=== PATIENT | female | born 1960 | race Hispanic/Latino ===

== ENCOUNTER 2016-09-12 16:43 | Emergency (ER) | payer OTHER ==
[2016-09-12 16:48] VITALS: BMI 19.5
[2016-09-12 17:03] VITALS: TEMP 97.6; O2SAT 100
[2016-09-12] MEDS ORDERED: Iohexol 240 (50 ml) ONE ×2 (17:26→18:40)
--- NOTE | 2016-09-12 17:27 | C.PDOC ---
History Of Present Illness 56 y/o female presents to ED with complaint of diffuse lower abdominal pain onset 2 hours prior to arrival. She reports that pain worsens when she takes a deep breath or lays down. Also notes worsening of pain on movement or walking, Patient describes pain as constant and cramping. She had an episode of vomiting this morning but denies changes in bowel habits or urination, fever, chills, or back pain. Patient states it feels like pain is in her ovaries - notes history of left oophorectomy 2 years ago. Notes she has not had menstrual period in several years. Time Seen by Provider: 09/12/16 17:00 Chief Complaint (Nursing): Abdominal Pain History Per: Patient History/Exam Limitations: no limitations Onset/Duration Of Symptoms: Hrs Current Symptoms Are (Timing): Still Present Location Of Pain/Discomfort: RLQ, LLQ, Suprapubic Radiation Of Pain To:: None Quality Of Discomfort: Cramping, "Pain" Associated Symptoms: denies: Fever, Vomiting, Diarrhea, Loss Of Appetite, Back Pain, Urinary Symptoms Exacerbating Factors: Movement, Walking, Deep Breaths Recent travel outside of the [place]: No Past Medical History Reviewed: Historical Data, Nursing Documentation, Vital Signs Vital Signs: Last Vital Signs Temp 97.6 F 09/12/16 17:02 Pulse 62 09/12/16 18:18 Resp 16 09/12/16 18:18 BP 157/83 H 09/12/16 18:18 Pulse Ox 100 09/12/16 20:05 - [facility] Procedures INJECT/INFUSE NEC (06/27/14) Family History: States: Unknown Family Hx - Social History Hx Alcohol Use: Yes Hx Substance Use: No - Immunization History Hx Tetanus Toxoid Vaccination: No Hx Influenza Vaccination: No Hx Pneumococcal Vaccination: No Review Of Systems Except As Marked, All Systems Reviewed And Found Negative. Constitutional: Negative for: Fever, Chills Respiratory: Negative for: Cough Gastrointestinal: Positive for: Abdominal Pain. Negative for: Vomiting, Diarrhea Genitourinary: Negative for: Dysuria, Hematuria Skin: Negative for: Rash Neurological: Negative for: Headache, Dizziness Physical Exam - Physical Exam Appears: Non-toxic, Other (uncomfortable in pain) Skin: Normal Color, Warm, Dry Head: Atraumatic, Normacephalic Oral Mucosa: Moist Chest: Symmetrical Cardiovascular: Rhythm Regular Respiratory: Normal Breath Sounds, No Rales, No Rhonchi, No Wheezing Gastrointestinal/Abdominal: Soft, Tenderness (suprapubic and lower abdomen), No Distention, Guarding (voluntary guarding), No Rebound Back: No CVA Tenderness Extremity: Normal ROM, Capillary Refill (< 2 sec.) Neurological/Psych: Oriented x3, Normal Speech, Normal Cognition ED Course And Treatment - Laboratory Results Result Diagrams: 09/12/16 17:50 09/12/16 17:50 Lab Interpretation: No Acute Changes O2 Sat by Pulse Oximetry: 100 (RA) Pulse Ox Interpretation: Normal - CT Scan/US Abdomen/Pelvis CT Other Rad Studies (CT/US): Read By Radiologist (Chiquita Monson MD), Radiology Report Reviewed CT/US Interpretation: EXAM: CT Abdomen and Pelvis With Intravenous Contrast. CLINICAL HISTORY: 56 years old, female; Pain; Abdominal pain; Generalized; Additional info: Abd pain. TECHNIQUE: Axial computed tomography images of the abdomen and pelvis with intravenous contrast. This CT. exam was performed using one or more of the following dose reduction techniques: automated. exposure control, adjustment of the mA and/or kV according to patient size, and/ or use of iterative. reconstruction technique. Coronal and sagittal reformatted images were created and reviewed. CONTRAST: 100 mL of omni 300 administered intravenously. EXAM DATE/TIME: Exam ordered 09/12/2016 5:13 PM. COMPARISON: No relevant prior studies available. FINDINGS: Lower thorax: No acute findings. ABDOMEN: Liver: A coarse calcification is noted within the liver parenchyma in the right lobe anteriorly. A. second calcification is noted more inferiorly also in the anterior segment of the right lobe near the. dome. Gallbladder and bile ducts: Unremarkable. No calcified stones. No ductal dilation. Pancreas: Unremarkable. No mass. No ductal dilation. Spleen: Unremarkable. No splenomegaly. Adrenals: Unremarkable. No mass. Kidneys and ureters: Unremarkable. No solid mass. No hydronephrosis. Stomach and bowel: Scattered colonic diverticula are present most severe in the sigmoid colon. The cecum is positioned in the midline. The appendix appears normal. No inflammatory changes are. seen. No obstruction. No mucosal thickening. Appendix: See above. PELVIS: Bladder: Unremarkable. No mass. Reproductive: Unremarkable as visualized. ABDOMEN and PELVIS: Intraperitoneal space: A small free fluid is seen in the posterior cul-de-sac. No free air. Bones/joints : No acute fracture. No dislocation. Soft tissues: Unremarkable. Vasculature: Unremarkable. No abdominal aortic aneurysm. Lymph nodes: Unremarkable. No enlarged lymph nodes. IMPRESSION: 1 Generalize colonic diverticulosis most severe in the sigmoid colon. No findings to suggest. diverticulitis. 2. Hepatic parenchymal calcifications. These could be dystrophic or represent previous. granulomatous disease. Progress Note: CT Abdomen/Pelvis, Labs ordered. Treated with morphine 2mg IVP. She continued to c/o nausea and pain. Treated with Zofran and Dilaudid. Reevaluation Time: 20:49 Reassessment Condition: Improved (but now with epigastric pain. Lower abdominal pain resolved. CT does not show any acute intraabdominal pathology.) Disposition Counseled Patient/Family Regarding: Studies Performed, Diagnosis, Need For Followup, Rx Given - Disposition Disposition: HOME/ ROUTINE Disposition Time: 20:49 Condition: IMPROVED Additional Instructions: Keep your diet bland as tolerated. Prescriptions: Naproxen [Naprosyn] 500 mg PO BID PRN #30 tablet PRN Reason: Pain, Moderate (4-7) Ondansetron ODT [Zofran ODT] 1 odt PO BID PRN #6 odt PRN Reason: Nausea/Vomiting Pantoprazole Sodium [Protonix] 40 mg PO DAILY #30 tablet. Instructions: Acute Abdominal Pain (ED) - Clinical Impression Clinical Impression: Abdominal pain, Nausea - Scribe Statement The provider has reviewed the documentation as recorded by the Traci Lindsey Provider Attestation: All medical record entries made by the Traci were at my direction and personally dictated by me. I have reviewed the chart and agree that the record accurately reflects my personal performance of the history, physical exam, medical decision making, and the department course for this patient. I have also personally directed, reviewed, and agree with the discharge instructions and disposition.
[2016-09-12] MEDS: Iohexol 240 (50 ml) PO ONE (17:29)
[2016-09-12 17:57] LABS: BASO # 0.1 K/uL (0.0-0.2); BASO % 0.5 % (0.0-2.0); EOS % 0.2 % (0.0-4.0); HEMATOCRIT 45.9 % (34.0-47.0); LYMPH # 1.5 K/uL (1.0-4.3); LYMPH % 14.3 % (20.0-40.0); MEAN CELL VOLUME 96.8 fL (81.0-99.0); MEAN CORPUSCULAR HEMOGLOBIN 32.1 pg (27.0-31.0); MEAN CORPUSCULAR HGB CONC 33.2 g/dL (33.0-37.0); MONO # 0.6 K/uL (0.0-0.8); MONO % 5.3 % (0.0-10.0); RED CELL DISTRIBUTION WIDTH 14.7 % (11.5-14.5); WHITE BLOOD COUNT 10.8 K/uL (4.8-10.8)
[2016-09-12 17:59] LABS: URINE BILIRUBIN NEGATIVE (NEGATIVE); URINE BLOOD NEGATIVE (NEGATIVE); URINE COLOR Straw (YELLOW); URINE GLUCOSE (UA) 3+ mg/dL (Normal); URINE KETONE NEGATIVE (NEGATIVE); URINE LEUKOCYTE ESTERASE NEG Leu/uL (Negative); URINE PROTEIN NEGATIVE (NEGATIVE); URINE UROBILINOGEN NORMAL mg/dL (0.2-1.0); WBC URINE < 1 /hpf (0-5)
[2016-09-12 18:04] LABS: CHLORIDE 100 mmol/L (98-107)
[2016-09-12 18:05] LABS: POTASSIUM 4.1 mmol/L (3.6-5.2); SODIUM 140 mmol/L (132-148)
[2016-09-12 18:07] LABS: BILIRUBIN,TOTAL 0.5 mg/dL (0.2-1.3); CARBON DIOXIDE 25 mmol/L (22-30); GFR AFRICAN-AMERICAN > 60
[2016-09-12 18:08] LABS: ALB/GLOB RATIO 1.6 (1.0-2.1); ALKALINE PHOSPHATASE 111 U/L (38-126); ALT/SGPT 25 U/L (9-52); AST/SGOT 21 U/L (14-36); BLOOD UREA NITROGEN 7 mg/dL (7-17); CALCIUM 9.2 mg/dl (8.6-10.4); GLUCOSE,RANDOM 190 mg/dL (65-105)
[2016-09-12 18:19] VITALS: BP 157/83; PULSE 62; RESP 16
[2016-09-12] MEDS ORDERED: HYDROmorphone 1 mg/ml ISec ONE (18:46)
[2016-09-12] MEDS: HYDROmorphone 1 mg/ml ISec IVP STA (18:56)
[2016-09-12] MEDS ORDERED: Iohexol 300 100 ML IJ ONE (19:19)
--- NOTE | 2016-09-13 08:34 | CT ---
PROCEDURE: CT Abdomen and Pelvis with contrast HISTORY: Abdominal pain COMPARISON: None. TECHNIQUE: Multiple contiguous axial images were performed through the abdomen and pelvis with intravenous contrast. Subsequently, sagittal and coronal reformatted images were obtained. Radiation dose: Total exam DLP = 196 mGy-cm. This CT exam was performed using one or more of the following dose reduction techniques: Automated exposure control, adjustment of the mA and/or kV according to patient size, and/or use of iterative reconstruction technique. FINDINGS: LOWER THORAX: Bibasilar atelectasis. LIVER: Fatty infiltration of the liver. Coarse calcification noted within the hepatic parenchyma in the right lobe anteriorly. Additional calcification noted more inferiorly also in the anterior segment of the right lobe near the dome. GALLBLADDER AND BILE DUCTS: Unremarkable. PANCREAS: Unremarkable. No gross lesion or ductal dilatation. SPLEEN: Unremarkable. ADRENALS: Unremarkable. No mass. KIDNEYS AND URETERS: Unremarkable. No hydronephrosis. No solid mass. VASCULATURE: Calcification and plaque within the aorta. BOWEL: Under distended and or mildly thickened distal descending colon and sigmoid colon. Underdistention and or mild thickening of the cecum. In addition, there are a few distended loops of small bowel seen within the distal abdomen measuring up to 2.9 centimeters, nonspecific. Clinical correlation. Scattered colonic diverticuli present most prominent in the sigmoid colon. Cecum is positioned in the midline. APPENDIX: Normal appendix. PERITONEUM: Small amount of free fluid in the posterior pelvic cul-de-sac. LYMPH NODES: Unremarkable. No enlarged lymph nodes. BLADDER: Unremarkable. REPRODUCTIVE: Unremarkable. BONES: Degenerative changes in the spine. OTHER FINDINGS: None. IMPRESSION: Under distended and or mildly thickened distal descending colon and sigmoid colon. Underdistention and or mild thickening of the cecum. In addition, there are a few distended loops of small bowel seen within the distal abdomen measuring up to 2.9 centimeters, nonspecific. Clinical correlation. Scattered colonic diverticuli present most prominent in the sigmoid colon. Small amount of free fluid in the posterior pelvic cul-de-sac. Hepatic parenchymal calcifications. This may be secondary to dystrophic calcifications versus prior granulomatous disease. Clinical correlation. These findings were preliminarily reported at 8:02 p.m. on 09/12/[address] Chiquita Monson.
== END 2016-09-12 21:01 | disposition home or self-care (01) ==
LOC: C.ER 16:43
DX: R10.9 Unspecified abdominal pain (principal)
CPT/HCPCS: 74177; 80053; 81001; 83690; 85025; 96374; 96375; 99285; J1170; J2270; J2405; Q9966; Q9967

== ENCOUNTER 2016-09-13 04:25 | Inpatient (IN) | payer OTHER ==
[2016-09-13 04:25] VITALS: BMI 19.5
[2016-09-13] MEDS ORDERED: Sodium Chloride 0.9% 1,000 ML IV ONE ×3 (04:50→09:01)
--- NOTE | 2016-09-13 04:50 | C.PDOC ---
History Of Present Illness pt was seen here a few hours ago for similar complaints. Ct showed diverticulosis, not diverticulitits. Pt felt better and was discharged., States she had recurrent pain, nausea, not tolerating po. Time Seen by Provider: 09/13/16 04:50 Chief Complaint (Nursing): Abdominal Pain History Per: Patient History/Exam Limitations: no limitations Onset/Duration Of Symptoms: Hrs Current Symptoms Are (Timing): Still Present Context: Other Severity: Moderate Pain Scale Rating Of: 4 Location Of Pain/Discomfort: Diffuse Radiation Of Pain To:: None Quality Of Discomfort: Sharp, Aching, Cramping Associated Symptoms: Nausea, Vomiting. denies: Fever, Chills, Chest Pain Exacerbating Factors: None Alleviating Factors: None Last Bowel Movement: Today Recent travel outside of the [place]: No Additional History Per: Patient, Family Abnormal Vaginal Bleeding: No Past Medical History Reviewed: Historical Data, Nursing Documentation, Vital Signs Vital Signs: Last Vital Signs Temp 97.4 F L 09/13/16 04:35 Pulse 103 H 09/13/16 04:35 Resp 20 09/13/16 04:35 BP 154/121 H 09/13/16 04:35 Pulse Ox 20 L 09/13/16 05:04 - [email or web address] Procedures INJECT/INFUSE NEC (06/27/14) Family History: States: No Known Family Hx - Social History Hx Alcohol Use: Yes Hx Substance Use: No - Immunization History Hx Tetanus Toxoid Vaccination: No Hx Influenza Vaccination: No Hx Pneumococcal Vaccination: No Review Of Systems Constitutional: Negative for: Fever, Chills Eyes: Negative for: Redness ENT: Negative for: Throat Pain Cardiovascular: Negative for: Chest Pain, Palpitations Respiratory: Negative for: Shortness of Breath Gastrointestinal: Positive for: Nausea, Vomiting, Abdominal Pain. Negative for : Constipation Genitourinary: Negative for: Dysuria Musculoskeletal: Negative for: Back Pain Skin: Negative for: Rash, Lesions, Jaundice, Bruising Neurological: Negative for: Weakness Psych: Positive for: Anxiety Physical Exam - Physical Exam Appears: In Acute Distress Skin: Warm, Dry Head: Normacephalic Eye(s): bilateral: Normal Inspection Nose: No Flaring Oral Mucosa: Moist Neck: Supple Chest: Symmetrical Cardiovascular: Rhythm Regular Respiratory: No Rales, No Rhonchi, No Wheezing Gastrointestinal/Abdominal: Bowel Sounds (tympanic to percussion), Soft, Tenderness (diffuse), No Distention, Guarding (voluntary), No Rebound Back: Normal Inspection, No CVA Tenderness Extremity: Normal ROM Extremity: Bilateral: Atraumatic Neurological/Psych: Oriented x3, Normal Speech, Normal Cognition Gait: Steady ED Course And Treatment - Laboratory Results Result Diagrams: 09/13/16 05:06 09/13/16 05:06 ECG: Interpreted By Me, Viewed By Me ECG Rhythm: Sinus Rhythm (86), Nonspecific Changes O2 Sat by Pulse Oximetry: 20 Pulse Ox Interpretation: Normal - Radiology CXR: Interpreted by Me Progress Note: blood work, ivf, zofran, morphine Disposition Discussed With Dr.: Pricila Myers Comment: accepted the pt on his service and took over the care at 544 AM Doctor Will See Patient In The: Hospital Counseled Patient/Family Regarding: Studies Performed, Diagnosis - Disposition Disposition: HOSPITALIZED Disposition Time: 04:50 Condition: GUARDED - POA Present On Arrival: None, Poor Glycemic Control - Clinical Impression Clinical Impression: Vomiting, Abdominal pain, Nausea, Diverticulosis Decision To Admit - Pt Status Changed To: Hospital Disposition Of: Inpatient - Admit Certification Admit to Inpatient:: After my assessment, the patient will require hospitalization for at least two midnights. This is because of the severity of symptoms shown, intensity of services needed, and/or the medical risk in this patient being treated as an outpatient. - InPatient: Physician Admission Certification:: After my assessment, the patient will require hospitalization for at least two midnights. This is because of the severity of symptoms shown, intensity of services needed, and/or the medical risk in this patient being treated as an outpatient. - . Bed Request Type: Regular Admitting Physician: Pricila Myers Patient Diagnosis: Vomiting, Abdominal pain, Nausea, Diverticulosis
[2016-09-13] MEDS ORDERED: Morphine 4 MG/ML VIAL ONE (05:07)
[2016-09-13 05:09] LABS: BASO % 0.3 % (0.0-2.0); EOS % 0.1 % (0.0-4.0); HEMATOCRIT 48.3 % (34.0-47.0); LYMPH # 0.7 K/uL (1.0-4.3); LYMPH % 7.6 % (20.0-40.0); MEAN CELL VOLUME 95.3 fL (81.0-99.0); MEAN CORPUSCULAR HEMOGLOBIN 32.5 pg (27.0-31.0); MEAN CORPUSCULAR HGB CONC 34.1 g/dL (33.0-37.0); MEAN PLATELET VOLUME 7.9 fL (7.2-11.7); MONO # 0.4 K/uL (0.0-0.8); MONO % 4.3 % (0.0-10.0); PLATELET COUNT 278 K/uL (130-400); RED CELL DISTRIBUTION WIDTH 14.4 % (11.5-14.5); WHITE BLOOD COUNT 9.6 K/uL (4.8-10.8)
[2016-09-13 05:19] LABS: CHLORIDE 97 mmol/L (98-107)
[2016-09-13 05:20] LABS: POTASSIUM 3.8 mmol/L (3.6-5.2); SODIUM 137 mmol/L (132-148)
[2016-09-13 05:22] LABS: BILIRUBIN,TOTAL 0.8 mg/dL (0.2-1.3); CARBON DIOXIDE 24 mmol/L (22-30); GFR AFRICAN-AMERICAN > 60
[2016-09-13 05:23] LABS: ALB/GLOB RATIO 1.5 (1.0-2.1); ALKALINE PHOSPHATASE 116 U/L (38-126); ALT/SGPT 19 U/L (9-52); AST/SGOT 18 U/L (14-36); BLOOD UREA NITROGEN 9 mg/dL (7-17); CALCIUM 8.5 mg/dl (8.6-10.4); GLUCOSE,RANDOM 153 mg/dL (65-105); TOTAL PROTEIN 7.9 g/dL (6.3-8.3)
[2016-09-13 05:34] LABS: INR 0.9
[2016-09-13 07:07] LABS: NEUTROPHIL 87 % (50-75); TOTAL CELLS COUNTED 100
--- NOTE | 2016-09-13 09:20 | CP.PCM.CON ---
<Royal Ceballos - Last Filed: 09/13/16 10:01> History of Present Illness - History of Present Illness History of Present Illness: PGY4 GI Fellow Consult Note Patient is a 56yo female with PMHx significant for HTN, diverticulosis who presented to the ED with abdominal pain. Pain began suddenly in the left and right lower quadrants of the abdomen without and precipitating causes. Pain began to radiate to the epigastrium and thus patient took Zantac hoping to relieve her symptoms. As this medication did not improve symptoms, she came to the ED for further evaluation. In the ED, she had routine blood work and a CT A/ P. Work up was only remarkable for sigmoid diverticulosis. As pain had improved , she was discharged home. Less than 10 hours later, pain intensified again, now predominantly in the epigastric region prompting return visit to the ED. Currently, she admits to nausea and vomiting with any PO intake and has persistent epigastric abdominal pain. Denies any change in bowel habits, has not had diarrhea/constipation and denies any fever, chills, weight loss, melena , hematochezia. Of note, patient does admit to similar issues when she was much younger where she would develop severe pain in the epigastric region and have difficulty with PO intake. No formal diagnosis has been made previously. PMHx: HTN, diverticulosis PSHx: Left salpingo-oophorectomy, left breast lumpectomy FHx: Denies any significant family history Social: Daily EtOH use (1-2 beer per day), +tobacco use, denies illicit drug use Endo: EGD many years ago - unremarkable per patient Review of Systems - Constitutional Constitutional: Anorexia. absent: Chills, Fever, Weight Loss - EENT Eyes: absent: Change in Vision Nose/Mouth/Throat: absent: Sore Throat - Cardiovascular Cardiovascular: absent: Chest Pain, Dyspnea, Edema - Respiratory Respiratory: absent: Cough, Dyspnea, Excessive Mucous Production - Gastrointestinal Gastrointestinal: Abdominal Pain, Bloating, Dyspepsia. absent: Constipation, Cramping, Diarrhea, Dysphagia, Hematemesis, Hematochezia, Melena, Nausea, Vomiting - Genitourinary Genitourinary: absent: Dysuria, Urinary Frequency, Urinary Urgency - Musculoskeletal Musculoskeletal: absent: Back Pain, Neck Pain - Integumentary Integumentary: absent: New Lesions, Rash - Neurological Neurological: absent: Dizziness, Numbness, Focal Weakness - Psychiatric Psychiatric: absent: Anxiety, Depression - Endocrine Endocrine: absent: Polydipsia, Polyphagia, Polyuria - Hematologic/Lymphatic Hematologic: absent: Easy Bleeding, Easy Bruising, Lymphadenopathy Past Patient History - Past Medical History & Family History Past Medical History?: Yes - Past Social History Smoking Status: Light Smoker < 10 Cigarettes Daily - CARDIAC Hx Cardiac Disorders: No - PULMONARY Hx Respiratory Disorders: No - NEUROLOGICAL Hx Neurological Disorder: No - HEENT Hx HEENT Problems: No - RENAL Hx Chronic Kidney Disease: No - ENDOCRINE/METABOLIC Hx Endocrine Disorders: No - HEMATOLOGICAL/ONCOLOGICAL Hx Blood Disorders: No - INTEGUMENTARY Hx Dermatological Problems: No - MUSCULOSKELETAL/RHEUMATOLOGICAL Hx Musculoskeletal Disorders: No Hx Falls: No - GASTROINTESTINAL Hx Gastrointestinal Disorders: No - GENITOURINARY/GYNECOLOGICAL Hx Genitourinary Disorders: No - PSYCHIATRIC Hx Psychophysiologic Disorder: No Hx Substance Use: No - SURGICAL HISTORY Other/Comment: L breast cyst- surgery. ovary removed - ANESTHESIA Hx Anesthesia: Yes Hx Anesthesia Reactions: No Meds Allergies/Adverse Reactions: Allergies Allergy/AdvReac Type Severity Reaction Status Date / Time No Known Allergies Allergy Verified 09/12/16 16:46 - Medications Medications: Current Medications Sodium Chloride (Sodium Chloride 0.9%) 1,000 mls @ 60 mls/hr IV .[id number] ONE Stop: 09/13/16 22:27 Ondansetron HCl (Zofran Inj) 4 mg IVP Q6H PRN PRN Reason: Nausea/Vomiting Stop: 09/14/16 05:50 Pantoprazole Sodium (Protonix Inj) 40 mg IVP DAILY DOMINIQUE Physical Exam - Constitutional Appears: Non-toxic, No Acute Distress - Eye Exam Eye Exam: EOMI, PERRL - ENT Exam ENT Exam: Mucous Membranes Moist - Respiratory Exam Respiratory Exam: Clear to Auscultation Bilateral. absent: Rales, Rhonchi, Wheezes - Cardiovascular Exam Cardiovascular Exam: RRR, +S1, +S2 - GI/Abdominal Exam GI & Abdominal Exam: Normal Bowel Sounds, Soft, Tenderness (epigastric). absent : Distended, Firm, Guarding, Organomegaly, Rigid - Extremities Exam Extremities exam: Positive for: normal inspection. Negative for: pedal edema - Neurological Exam Neurological exam: Alert, Oriented x3 - Psychiatric Exam Psychiatric exam: Normal Affect, Normal Mood - Skin Skin Exam: Dry, Warm Results - Vital Signs Recent Vital Signs: Last Vital Signs Temp 98.4 F 09/13/16 07:15 Pulse 69 09/13/16 08:29 Resp 20 09/13/16 08:29 BP 167/104 H 09/13/16 07:15 Pulse Ox 98 09/13/16 08:29 - Labs Result Diagrams: 09/13/16 05:06 09/13/16 05:06 Assessment & Plan - Assessment and Plan (Free Text) Assessment: Patient is a 56yo female with PMHx significant for HTN, diverticulosis who presented to the ED with abdominal pain -Epigastric abdominal pain -Diverticulosis Plan: -Maintain NPO -Will plan for EGD this morning; R/O PUD, gastritis, malignancy in patient with EtOH/tobacco use history -Further management per findings of EGD -Patient offered colonoscopy with rapid prep but declined due to inability to tolerate prep at this time 2/2 pain/nausea/vomiting -Recommend outpatient follow up for age appropriate screening colonoscopy - Date & Time Date: 09/13/16 Time: 09:00 <Juan Vyas - Last Filed: 09/13/16 18:15> Meds - Medications Medications: Current Medications Amlodipine Besylate (Norvasc) 10 mg PO DAILY [facility] Last Admin: 09/13/16 13:24 Dose: 10 mg Enoxaparin Sodium (Lovenox) 40 mg SC DAILY [facility] Last Admin: 09/13/16 16:27 Dose: 40 mg Hydrochlorothiazide (Microzide) 12.5 mg PO DAILY [facility] Last Admin: 09/13/16 13:24 Dose: 12.5 mg Sodium Chloride (Sodium Chloride 0.9%) 1,000 mls @ 60 mls/hr IV .[id number] ONE Stop: 09/13/16 22:27 Last Admin: 09/13/16 12:41 Dose: 60 mls/hr Lactated Ringer's (Lactated Ringer's 500ml) 500 mls @ 75 mls/hr IV .[id number] [facility] Last Admin: 09/13/16 12:43 Dose: Not Given Metoprolol Tartrate (Lopressor) 25 mg PO BID [facility] Morphine Sulfate (Morphine) 2 mg IVP Q4 PRN PRN Reason: Pain, severe (8-10) Last Admin: 09/13/16 16:34 Dose: 2 mg Ondansetron HCl (Zofran Inj) 4 mg IVP Q6H PRN PRN Reason: Nausea/Vomiting Stop: 09/14/16 05:50 Last Admin: 09/13/16 12:38 Dose: 4 mg Pantoprazole Sodium (Protonix Ec Tab) 40 mg PO ACB DOMINIQUE Results - Vital Signs Recent Vital Signs: Last Vital Signs Temp 98.3 F 09/13/16 16:06 Pulse 68 09/13/16 16:06 Resp 20 09/13/16 16:06 BP 189/122 H 09/13/16 16:06 Pulse Ox 97 09/13/16 16:06 - Labs Result Diagrams: 09/13/16 05:06 09/13/16 05:06 Attending/Attestation - Attestation I have personally seen and examined this patient.: Yes I have fully participated in the care of the patient.: Yes I have reviewed all pertinent clinical information: Yes Notes (Text): 09/13/16 18:09 I have seen and examined patient with GI fellow. Agree with above documentation with the following additions. In brief, this is a 56 year old female with history of HTN, diverticulosis who presents to hospital with complaint of abdominal pain which began suddenly yesterday. She describes bilateral lower quadrant discomfort with radiation to epigastric region, 8/10 intensity when present and associated with nausea. The pain does not seem to be related to food consumption and she denies associated vomiting, diarrhea, fever/chills, weight loss, rectal bleeding, NSAID use, or change in bowel habits. She has tried oral H2 amelia therapy without any significant benefit. No prior endoscopic evaluation. HTN Abdominal pain CT imaging reviewed by me showing sigmoid diverticulosis - NPO - Continue with PPI therapy - Given persistent abdominal pain despite medical therapy, would suggest EGD evaluation to rule out peptic ulcer disease, esophagitis, gastritis, or underlying lesion in patient with smoking and ETOH consumption history - Anti-emetic therapy PRN - Patient would also benefit from screening colonoscopy, though currently not able to tolerate PO intake. This can likely be performed electively as outpatient, following resolution of acute symptoms. Further management following results of endoscopic examination.
[2016-09-13] MEDS ORDERED: Propofol 10 mg/ml Inj (20 ML) ONE (10:56)
[2016-09-13] MEDS ORDERED: Labetalol 25mg/5ml Syringe ONE (11:08)
[2016-09-13] MEDS: Lactated Ringer's 500 ML IV SCH (12:43)
--- NOTE | 2016-09-13 15:05 | CP.PCM.PN ---
Subjective - Date & Time of Evaluation Date of Evaluation: 09/13/16 Time of Evaluation: 07:50 - Subjective Subjective: PGY2 Medicine Note - Dr. Marisabel Myers's service Patient seen and examined at bedside this AM. Patient reports continued epigastric pain and nausea. Patient says this happened to her a long time ago but she was never told what it was. Patient denies fever, chills, chest pain, SOB. Objective - Vital Signs/Intake and Output Vital Signs (last 24 hours): Temp Pulse Resp BP Pulse Ox 97.5 F L 87 15 170/97 H 98 09/13/16 11:23 09/13/16 11:53 09/13/16 11:53 09/13/16 13:27 09/13/16 11:53 Intake and Output: 09/13/16 09/13/16 06:59 18:59 Intake Total 540 Balance 540 - Medications Medications: Current Medications Amlodipine Besylate (Norvasc) 10 mg PO DAILY [facility] Last Admin: 09/13/16 13:24 Dose: 10 mg Hydrochlorothiazide (Microzide) 12.5 mg PO DAILY [facility] Last Admin: 09/13/16 13:24 Dose: 12.5 mg Sodium Chloride (Sodium Chloride 0.9%) 1,000 mls @ 60 mls/hr IV .[id number] ONE Stop: 09/13/16 22:27 Last Admin: 09/13/16 12:41 Dose: 60 mls/hr Lactated Ringer's (Lactated Ringer's 500ml) 500 mls @ 75 mls/hr IV .Q6H40M [facility] Last Admin: 09/13/16 12:43 Dose: Not Given Morphine Sulfate (Morphine) 2 mg IVP Q4 PRN PRN Reason: Pain, severe (8-10) Last Admin: 09/13/16 12:38 Dose: 2 mg Ondansetron HCl (Zofran Inj) 4 mg IVP Q6H PRN PRN Reason: Nausea/Vomiting Stop: 09/14/16 05:50 Last Admin: 09/13/16 12:38 Dose: 4 mg Pantoprazole Sodium (Protonix Ec Tab) 40 mg PO ACB [facility] - Labs Labs: PT 10.3 SECONDS (9.7-12.2) 09/13/16 05:06 INR 0.9 09/13/16 05:06 APTT 31 SECONDS (21-34) 09/13/16 05:06 - Constitutional Appears: Non-toxic, No Acute Distress - Head Exam Head Exam: NORMAL INSPECTION - Eye Exam Eye Exam: EOMI - ENT Exam ENT Exam: Mucous Membranes Moist - Respiratory Exam Respiratory Exam: Clear to Ausculation Bilateral, NORMAL BREATHING PATTERN. absent: Rales, Rhonchi, Wheezes - Cardiovascular Exam Cardiovascular Exam: REGULAR RHYTHM, +S1, +S2. absent: Gallop, Rubs, Murmur - GI/Abdominal Exam GI & Abdominal Exam: Soft, Tenderness (epigastric), Normal Bowel Sounds - Extremities Exam Extremities Exam: absent: Pedal Edema - Neurological Exam Neurological Exam: Alert, Awake - Skin Skin Exam: Normal Color, Warm Assessment and Plan - Assessment and Plan (Free Text) Assessment: Epigastric pain GI consult - Dr. Vyas - help appreciated Protonix 40mg PO ACB Morphine 2mg IVP Q4 PRN EGD 09/13/16 - Z line irregular and found 37 cm from incisors. biopsies taken with cold forceps for histology. normal esophagus. localized moderate inflammation characterized by linear erosions in gastri antrum. biopsies taken for H. Pylori. 1cm hiatal hernia. cardia and gastric fundus were normal. single 9mm pedunculated polyp was found in the duodenal bulb. hot snare removal. resection and retrieval complete. duodenal exam otherwise normal. (please see full report) Advance diet as tolerated F/U pathology results Nausea/Vomiting Zofran 4mg IVP Q6H PRN Diverticulosis High fiber diet Hypertension Norvasc 10mg PO daily HCTZ 12.5mg PO daily Prophylaxis Protonix 40mg PO daily Lovenox 40mg SC daily Management per Dr. Marisabel Myers
[2016-09-13] MEDS: Enoxaparin 40 mg Syringe SC SCH (16:27)
--- NOTE | 2016-09-13 18:32 | CP.PCM.HP ---
Past Patient History - Past Medical History & Family History Past Medical History?: Yes - Past Social History Smoking Status: Light Smoker < 10 Cigarettes Daily - CARDIAC Hx Cardiac Disorders: No - PULMONARY Hx Respiratory Disorders: No - NEUROLOGICAL Hx Neurological Disorder: No - HEENT Hx HEENT Problems: No - RENAL Hx Chronic Kidney Disease: No - ENDOCRINE/METABOLIC Hx Endocrine Disorders: No - HEMATOLOGICAL/ONCOLOGICAL Hx Blood Disorders: No - INTEGUMENTARY Hx Dermatological Problems: No - MUSCULOSKELETAL/RHEUMATOLOGICAL Hx Musculoskeletal Disorders: No Hx Falls: No - GASTROINTESTINAL Hx Gastrointestinal Disorders: No - GENITOURINARY/GYNECOLOGICAL Hx Genitourinary Disorders: No - PSYCHIATRIC Hx Psychophysiologic Disorder: No Hx Substance Use: No - SURGICAL HISTORY Other/Comment: L breast cyst- surgery. ovary removed - ANESTHESIA Hx Anesthesia: Yes Hx Anesthesia Reactions: No Meds Allergies/Adverse Reactions: Allergies Allergy/AdvReac Type Severity Reaction Status Date / Time No Known Allergies Allergy Verified 09/12/16 16:46 Results - Vital Signs Recent Vital Signs: Last Vital Signs Temp 98.3 F 09/13/16 16:06 Pulse 68 09/13/16 16:06 Resp 20 09/13/16 16:06 BP 189/122 H 09/13/16 16:06 Pulse Ox 97 09/13/16 16:06 - Labs Result Diagrams: 09/13/16 05:06 09/13/16 05:06
[2016-09-13] MEDS: Sodium Chloride 0.9% 1,000 ML IV SCH (21:30)
[2016-09-14] MEDS: Lactated Ringer's 500 ML IV SCH (01:03)
[2016-09-14 07:21] LABS: BASO % 0.2 % (0.0-2.0); EOS % 0.1 % (0.0-4.0); HEMATOCRIT 45.4 % (34.0-47.0); LYMPH # 1.3 K/uL (1.0-4.3); LYMPH % 14.1 % (20.0-40.0); MEAN CELL VOLUME 95.5 fL (81.0-99.0); MEAN CORPUSCULAR HEMOGLOBIN 32.2 pg (27.0-31.0); MEAN CORPUSCULAR HGB CONC 33.8 g/dL (33.0-37.0); MEAN PLATELET VOLUME 8.4 fL (7.2-11.7); MONO % 10.2 % (0.0-10.0); NRBC % 0.1 % (0.0-2.0); RED CELL DISTRIBUTION WIDTH 14.6 % (11.5-14.5); WHITE BLOOD COUNT 9.5 K/uL (4.8-10.8)
[2016-09-14] MEDS ORDERED: Pantoprazole 40 mg EC Tab PO SCH (07:30)
[2016-09-14 07:35] LABS: CHLORIDE 100 mmol/L (98-107); POTASSIUM 3.3 mmol/L (3.6-5.2); SODIUM 137 mmol/L (132-148)
[2016-09-14 07:37] LABS: CARBON DIOXIDE 26 mmol/L (22-30); GFR AFRICAN-AMERICAN > 60
[2016-09-14 07:38] LABS: ALB/GLOB RATIO 1.2 (1.0-2.1); ALKALINE PHOSPHATASE 80 U/L (38-126); ALT/SGPT 16 U/L (9-52); AST/SGOT 17 U/L (14-36); BILIRUBIN,TOTAL 0.7 mg/dL (0.2-1.3); BLOOD UREA NITROGEN 15 mg/dL (7-17); CALCIUM 8.7 mg/dl (8.6-10.4); GLUCOSE,RANDOM 123 mg/dL (65-105); TOTAL PROTEIN 6.5 g/dL (6.3-8.3)
[2016-09-14] MEDS ORDERED: Potassium Chloride 20 mEq ER Tab PO STA (08:11)
--- NOTE | 2016-09-14 09:47 | CP.PCM.PN ---
Subjective - Date & Time of Evaluation Date of Evaluation: 09/14/16 Time of Evaluation: 09:40 - Subjective Subjective: Patient seen and examined. S/p EGD yesterday erosive gastritis, hiatal hernia, duodenal polyp (see report for full details). She complains of persistent diffuse abdominal pain associated with nausea/vomiting. She reports not tolerating much liquid yesterday. No fever. She denies any diarrhea/rectal bleeding. ROS otherwise negative in detail Objective - Vital Signs/Intake and Output Vital Signs (last 24 hours): Temp Pulse Resp BP Pulse Ox 98.3 F 78 17 172/111 H 97 09/14/16 07:10 09/14/16 07:10 09/14/16 07:10 09/14/16 07:10 09/14/16 07:10 - Medications Medications: Current Medications Amlodipine Besylate (Norvasc) [address] [facility] Last Admin: 09/13/16 13:24 Dose: 10 mg Enoxaparin Sodium (Lovenox) [address] [facility] Last Admin: 09/13/16 16:27 Dose: 40 mg Hydrochlorothiazide (Microzide) 12.[address] [facility] Last Admin: 09/13/16 13:24 Dose: 12.5 mg Lactated Ringer's (Lactated Ringer's 500ml) 500 mls @ 75 mls/hr IV .Q6H40M [facility] Stop: 09/14/16 21:30 Last Admin: 09/14/16 01:03 Dose: Not Given Sodium Chloride (Sodium Chloride 0.9%) 1,000 mls @ 60 mls/hr IV .[id number] [facility] Last Admin: 09/13/16 21:30 Dose: 60 mls/hr Metoprolol Tartrate (Lopressor) [address] [facility] Last Admin: 09/13/16 22:09 Dose: 25 mg Morphine Sulfate (Morphine) 2 mg IVP Q4 PRN PRN Reason: Pain, severe (8-10) Last Admin: 09/14/16 00:57 Dose: 2 mg Pantoprazole Sodium (Protonix Ec Tab) [address] [facility] Last Admin: 09/14/16 07:09 Dose: 40 mg - Labs Labs: 09/14/16 07:03 09/14/16 07:03 PT 10.3 SECONDS (9.7-12.2) 09/13/16 05:06 INR 0.9 09/13/16 05:06 APTT 31 SECONDS (21-34) 09/13/16 05:06 - Constitutional Appears: No Acute Distress - Eye Exam Eye Exam: absent: Scleral icterus - ENT Exam ENT Exam: Mucous Membranes Moist - Respiratory Exam Respiratory Exam: Clear to Ausculation Bilateral - Cardiovascular Exam Cardiovascular Exam: +S1, +S2 - GI/Abdominal Exam Additional comments: abdomen soft, bowel sounds present, mild diffuse tenderness to palpation without rebound or guarding, no palpable mass - Extremities Exam Extremities Exam: absent: Pedal Edema - Neurological Exam Neurological Exam: Alert, Oriented x3 - Skin Skin Exam: Dry Assessment and Plan - Assessment and Plan (Free Text) Assessment: This is a 56yo female with h/o HTN, diverticulosis who is admitted with abdominal pain associated with nausea/vomiting. CT scan showed sigmoid diverticulosis/underdistended colon. EGD yesterday with erosive gastritis/ duodenal polyp. Plan: Continue conservative management PPI daily Antiemetic therapy as needed IVF hydration Obtain abdominal sonogram, r/o hepatobiliary pathology Clear liquid diet as tolerated The patient will need elective colonoscopy
[2016-09-14] MEDS: Enoxaparin 40 mg Syringe SC SCH (10:02)
--- NOTE | 2016-09-14 12:41 | US ---
HISTORY: Abdominal pain, nausea/vomiting COMPARISON: CT abdomen and pelvis performed the same day TECHNIQUE: Sonographic evaluation of the abdomen. FINDINGS: LIVER: Measures 16.6 cm. There is diffuse increased echogenicity of the liver parenchyma. There are 2 nonspecific coarse calcifications in the right hepatic lobe. No mass. No intrahepatic bile duct dilatation. GALLBLADDER: Unremarkable. No gallstones. COMMON BILE DUCT: Measures 4.0 mm. No stones. No dilatation. PANCREAS: Unremarkable as visualized. No mass. No ductal dilatation. RIGHT KIDNEY: Measures 9.3cm. Normal echogenicity. No calculus, mass, or hydronephrosis. LEFT KIDNEY: Measures 9.9cm. Normal echogenicity. No calculus, mass, or hydronephrosis. SPLEEN: Normal in size and contour. No mass. AORTA: No aneurysmal dilatation. IVC: Unremarkable. OTHER FINDINGS: None. IMPRESSION: Diffuse increased echogenicity in the liver may reflect hepatic steatosis however parenchymal infectious/ inflammatory etiologies cannot be entirely excluded. Clinical and laboratory correlation is advised. .
--- NOTE | 2016-09-14 12:44 | CP.PCM.PN ---
<SergoCarli H - Last Filed: 09/14/16 12:41> Subjective - Date & Time of Evaluation Date of Evaluation: 09/14/16 Time of Evaluation: 07:40 - Subjective Subjective: PGY2 Medicine Note - Dr. Marisabel Myers's service: Patient seen and examined at bedside this AM. Patient reports continued severe abdominal pain and vomiting. Patient cannot hold down anything. Patient had EGD yesterday which showed gastritis and 9mm polyp which was removed. We are awaiting pathology reports. Patient says she had a bowel movement on 09/12/16. She says she does not feel like she needs to have one as she has not eaten anything since being admitted because she vomits everything up. Objective - Vital Signs/Intake and Output Vital Signs (last 24 hours): Temp Pulse Resp BP Pulse Ox 98.3 F 74 17 172/111 H 97 09/14/16 07:10 09/14/16 08:00 09/14/16 07:10 09/14/16 07:10 09/14/16 07:10 - Medications Medications: Current Medications Amlodipine Besylate (Norvasc) 10 mg PO DAILY [facility] Last Admin: 09/14/16 10:02 Dose: 10 mg Enoxaparin Sodium (Lovenox) 40 mg SC DAILY [facility] Last Admin: 09/14/16 10:02 Dose: 40 mg Hydralazine HCl (Apresoline) 10 mg IVP Q6H PRN PRN Reason: SBP> 160 Hydrochlorothiazide (Microzide) 12.5 mg PO DAILY [facility] Last Admin: 09/14/16 10:02 Dose: 12.5 mg Lactated Ringer's (Lactated Ringer's 500ml) 500 mls @ 75 mls/hr IV .Q6H40M [facility] Stop: 09/14/16 21:30 Last Admin: 09/14/16 01:03 Dose: Not Given Sodium Chloride (Sodium Chloride 0.9%) 1,000 mls @ 60 mls/hr IV .[id number] [facility] Last Admin: 09/13/16 21:30 Dose: 60 mls/hr Metoprolol Tartrate (Lopressor) 25 mg PO BID [facility] Last Admin: 09/14/16 10:48 Dose: Not Given Morphine Sulfate (Morphine) 2 mg IVP Q4 PRN PRN Reason: Pain, severe (8-10) Last Admin: 09/14/16 00:57 Dose: 2 mg Pantoprazole Sodium (Protonix Inj) 40 mg IVP ACB [facility] Last Admin: 09/14/16 10:39 Dose: 40 mg - Labs Labs: 09/14/16 07:03 09/14/16 07:03 PT 10.3 SECONDS (9.7-12.2) 09/13/16 05:06 INR 0.9 09/13/16 05:06 APTT 31 SECONDS (21-34) 09/13/16 05:06 - Constitutional Appears: Non-toxic, No Acute Distress - Head Exam Head Exam: NORMAL INSPECTION - Eye Exam Eye Exam: EOMI - ENT Exam ENT Exam: Mucous Membranes Moist - Respiratory Exam Respiratory Exam: Clear to Ausculation Bilateral, NORMAL BREATHING PATTERN. absent: Rales, Rhonchi, Wheezes - Cardiovascular Exam Cardiovascular Exam: REGULAR RHYTHM, +S1, +S2. absent: Gallop, Rubs, Murmur - GI/Abdominal Exam GI & Abdominal Exam: Distended, Guarding, Soft, Tenderness. absent: Firm - Extremities Exam Extremities Exam: Normal Capillary Refill. absent: Pedal Edema - Neurological Exam Neurological Exam: Alert, Awake, Oriented x3 - Psychiatric Exam Psychiatric exam: Normal Affect, Normal Mood - Skin Skin Exam: Normal Color, Warm Assessment and Plan - Assessment and Plan (Free Text) Assessment: SBO Abdominal/Pelvis CT no contrast 09/14/16 - constrast still seen in small bowel; dilated loops of small bowel - f/u official read Abdominal/Pelvis CT PO and IV contrast 09/12/16 - underdistended and/or mildly thickened distal descending colon and sigmoid colon. Underdistension and/or mild thickening of the cecum. In addition, there are a few distended loops of small bowel seen within the distal abdomen measuring up to 2.9 centimeteres, nonspecific; scattered colonic diverticuli present most prominenet in the sigmoid colon; small amount of free fluid in the posterior pelvic cul-de-sac; hepatic parenchymal calcifications Surgery consult - Dr. Stanley - help appreciated Will likely need NGT Zofran 4mg IVP Q6H PRN nausea/vomiting Epigastric pain Likely secondary to SBO and erosive gastritis GI consult - Dr. Vyas - help appreciated Protonix 40mg IVP ACB Morphine 2mg IVP Q4 PRN EGD 09/13/16 - Z line irregular and found 37 cm from incisors. biopsies taken with cold forceps for histology. normal esophagus. localized moderate inflammation characterized by linear erosions in gastri antrum. biopsies taken for H. Pylori. 1cm hiatal hernia. cardia and gastric fundus were normal. single 9mm pedunculated polyp was found in the duodenal bulb. hot snare removal. resection and retrieval complete. duodenal exam otherwise normal. (please see full report) Advance diet as tolerated F/U pathology results Diverticulosis High fiber diet Hypertension PO meds on hold Hydralazine 10mg IVP Q6H PRN SBP>160 Prophylaxis Protonix 40mg PO daily Lovenox 40mg SC daily Management per Dr. Marisabel Myers <Pricila Myers - Last Filed: 09/14/16 17:26> Objective - Vital Signs/Intake and Output Vital Signs (last 24 hours): Temp Pulse Resp BP Pulse Ox 98.6 F 72 20 165/100 H 99 09/14/16 15:48 09/14/16 15:48 09/14/16 15:48 09/14/16 15:48 09/14/16 15:48 Intake and Output: 09/14/16 09/14/16 06:59 18:59 Intake Total 990 Balance 990 - Medications Medications: Current Medications Enoxaparin Sodium (Lovenox) 40 mg SC DAILY [facility] Last Admin: 09/14/16 10:02 Dose: 40 mg Hydralazine HCl (Apresoline) 10 mg IVP Q6H PRN PRN Reason: SBP> 160 Lactated Ringer's (Lactated Ringer's 500ml) 500 mls @ 75 mls/hr IV .Q6H40M [facility] Stop: 09/14/16 21:30 Last Admin: 09/14/16 01:03 Dose: Not Given Sodium Chloride (Sodium Chloride 0.9%) 1,000 mls @ 100 mls/hr IV .Q10H [facility] Last Admin: 09/14/16 16:18 Dose: 100 mls/hr Morphine Sulfate (Morphine) 2 mg IVP Q4 PRN PRN Reason: Pain, severe (8-10) Last Admin: 09/14/16 16:13 Dose: 2 mg Ondansetron HCl (Zofran Inj) 4 mg IVP Q6H PRN PRN Reason: Nausea/Vomiting Last Admin: 09/14/16 14:35 Dose: 4 mg Pantoprazole Sodium (Protonix Inj) 40 mg IVP ACB [facility] Last Admin: 09/14/16 10:39 Dose: 40 mg - Labs Labs: 09/14/16 07:03 09/14/16 07:03 PT 10.3 SECONDS (9.7-12.2) 09/13/16 05:06 INR 0.9 09/13/16 05:06 APTT 31 SECONDS (21-34) 09/13/16 05:06 Attending/Attestation - Attestation I have personally seen and examined this patient.: Yes I have fully participated in the care of the patient.: Yes I have reviewed all pertinent clinical information, including history, physical exam and plan: Yes Notes (Text): 09/14/16 17:25 pt seen and discussed with staff adn resident lazara same ngtube refsued s/p surg for same
--- NOTE | 2016-09-14 13:45 | CT ---
PROCEDURE: CT Abdomen and Pelvis without intravenous contrast HISTORY: abdominal distension, vomiting, constipation COMPARISON: 09/12/2016 TECHNIQUE: Without contrast.. Contrast Dose: 0 Radiation dose: Total exam DLP = 226.84 mGy-cm. This CT exam was performed using one or more of the following dose reduction techniques: Automated exposure control, adjustment of the mA and/or kV according to patient size, and/or use of iterative reconstruction technique. FINDINGS: LOWER THORAX: Small right pleural effusion. No left pleural effusion. Minimal right lower lobe compressive atelectasis. LIVER: Normal size, contour and attenuation. Several nodular calcifications are likely granulomatous. No mass. No biliary dilatation. GALLBLADDER AND BILE DUCTS: Vicarious excretion of contrast material from contrast CT of 09/12/2016 is seen. No evidence of cholecystitis. PANCREAS: Unremarkable. No gross lesion or ductal dilatation. SPLEEN: Unremarkable. ADRENALS: Unremarkable. No mass. KIDNEYS AND URETERS: Unremarkable. No hydronephrosis. No solid mass. VASCULATURE: Unremarkable. No aortic aneurysm. BOWEL: There is mechanical small bowel obstruction. Multiple dilated small bowel loops are identified filled with oral contrast material. The point of obstruction is felt to be in the region of the proximal ileum. This is best demonstrated on series 3, image 125 and on series 601, image 56. There is collapsed small bowel distal to this point of presumed obstruction. The colon is collapsed. The etiology of the obstruction is not evident from this examination. Sigmoid diverticulosis without evidence of diverticulitis. APPENDIX: Not identified PERITONEUM: Mild ascites LYMPH NODES: Unremarkable. No enlarged lymph nodes. BLADDER: Poorly distended. No gross abnormality. The urine is of intermediate attenuation likely the result of excreted contrast material from 09/12/2016. REPRODUCTIVE: Normal uterus. BONES: No acute fracture. OTHER FINDINGS: None. IMPRESSION: Mechanical small-bowel obstruction, likely proximal ileum. Probable point of obstruction is identified. Etiology uncertain. Mild ascites. Small right pleural effusion. Additional minor findings as above. The finding of mechanical small-bowel obstruction was discussed with the patient's nurse, Yoko, at 1:40 p.m. on 09/14/2016.
[2016-09-14] MEDS: Sodium Chloride 0.9% 1,000 ML IV SCH ×2 (14:35→16:18)
[2016-09-14 15:16] LABS: RBC URINE 5 /hpf (0-3); URINE BACTERIA OCC (<OCC); URINE BILIRUBIN NEGATIVE (NEGATIVE); URINE BLOOD NEGATIVE (NEGATIVE); URINE COLOR Yellow (YELLOW); URINE GLUCOSE (UA) 1+ mg/dL (Normal); URINE KETONE 1+ mg/dL (NEGATIVE); URINE LEUKOCYTE ESTERASE 2+ Leu/uL (Negative); URINE PROTEIN 2+ mg/dL (NEGATIVE); URINE UROBILINOGEN NORMAL mg/dL (0.2-1.0); WBC URINE 19 /hpf (0-5)
[2016-09-14] MEDS ORDERED: DiphenhydrAMINE 50 mg/ml Inj IVP ONE ×2 (16:04→21:40)
--- NOTE | 2016-09-14 16:10 | CP.PCM.CON ---
History of Present Illness - History of Present Illness History of Present Illness: Surgery consult: Dr. Stanley HPI: 56yo F with colicky abdominal pain x 3 days. She states that she has experienced nausea and vomiting during the time despite only drinking liquids. She states that the vomit is brown liquid. She states that she has not passed gas or had a BM in 3 days. A NG tube was considered and the patient refused despite being told the risks and benefits of not having one placed. Denies ever having these symptoms before. Denies f/c, sob, chest pain MedHx: HTN, diverticulosis PSH: left salpingo-oophorectomy, left breast lumpectomy FamHx: Denies SocialHx: 1-2 drinks EtOH daily Review of Systems - Review of Systems All systems: reviewed and no additional remarkable complaints except (as per hpi ) - Constitutional Constitutional: As Per HPI - Gastrointestinal Gastrointestinal: Abdominal Pain, Bloating, Constipation, Nausea, Vomiting Past Patient History - Past Medical History & Family History Past Medical History?: Yes - Past Social History Smoking Status: Light Smoker < 10 Cigarettes Daily - CARDIAC Hx Cardiac Disorders: No - PULMONARY Hx Respiratory Disorders: No - NEUROLOGICAL Hx Neurological Disorder: No - HEENT Hx HEENT Problems: No - RENAL Hx Chronic Kidney Disease: No - ENDOCRINE/METABOLIC Hx Endocrine Disorders: No - HEMATOLOGICAL/ONCOLOGICAL Hx Blood Disorders: No - INTEGUMENTARY Hx Dermatological Problems: No - MUSCULOSKELETAL/RHEUMATOLOGICAL Hx Musculoskeletal Disorders: No Hx Falls: No - GASTROINTESTINAL Hx Gastrointestinal Disorders: No - GENITOURINARY/GYNECOLOGICAL Hx Genitourinary Disorders: No - PSYCHIATRIC Hx Psychophysiologic Disorder: No Hx Substance Use: No - SURGICAL HISTORY Other/Comment: L breast cyst- surgery. ovary removed - ANESTHESIA Hx Anesthesia: Yes Hx Anesthesia Reactions: No Meds Allergies/Adverse Reactions: Allergies Allergy/AdvReac Type Severity Reaction Status Date / Time No Known Allergies Allergy Verified 09/12/16 16:46 - Medications Medications: Current Medications Enoxaparin Sodium (Lovenox) 40 mg SC DAILY [facility] Last Admin: 09/14/16 10:02 Dose: 40 mg Hydralazine HCl (Apresoline) 10 mg IVP Q6H PRN PRN Reason: SBP> 160 Lactated Ringer's (Lactated Ringer's 500ml) 500 mls @ 75 mls/hr IV .Q6H40M [facility] Stop: 09/14/16 21:30 Last Admin: 09/14/16 01:03 Dose: Not Given Sodium Chloride (Sodium Chloride 0.9%) 1,000 mls @ 100 mls/hr IV .Q10H [facility] Morphine Sulfate (Morphine) 2 mg IVP Q4 PRN PRN Reason: Pain, severe (8-10) Last Admin: 09/14/16 00:57 Dose: 2 mg Ondansetron HCl (Zofran Inj) 4 mg IVP Q6H PRN PRN Reason: Nausea/Vomiting Last Admin: 09/14/16 14:35 Dose: 4 mg Pantoprazole Sodium (Protonix Inj) 40 mg IVP ACB [facility] Last Admin: 09/14/16 10:39 Dose: 40 mg Physical Exam - Constitutional Appears: No Acute Distress - ENT Exam ENT Exam: Mucous Membranes Dry - Respiratory Exam Respiratory Exam: absent: Accessory Muscle Use, Respiratory Distress - Cardiovascular Exam Cardiovascular Exam: REGULAR RHYTHM - GI/Abdominal Exam GI & Abdominal Exam: Guarding, Hyperactive Bowel Sounds, Rebound, Tenderness ( diffuse tenderness to palpation, with increased tenderness in the LLQ). absent : Hernia - Rectal Exam Rectal Exam: Deferred - Extremities Exam Extremities exam: Negative for: calf tenderness, pedal edema - Neurological Exam Neurological exam: Alert, Oriented x3 - Psychiatric Exam Psychiatric exam: Anxious, Normal Mood - Skin Skin Exam: Normal Color, Warm Results - Vital Signs Recent Vital Signs: Last Vital Signs Temp 98.6 F 09/14/16 15:48 Pulse 72 09/14/16 15:48 Resp 20 09/14/16 15:48 BP 165/100 H 09/14/16 15:48 Pulse Ox 99 09/14/16 15:48 - Labs Result Diagrams: 09/14/16 07:03 09/14/16 07:03 Labs: Laboratory Results - last 24 hr 09/14/16 09/14/16 09/14/16 07:03 07:03 15:01 WBC 9.5 RBC 4.75 Hgb 15.3 Hct 45.4 MCV 95.5 MCH 32.2 H MCHC 33.8 RDW 14.6 H Plt Count 256 MPV 8.4 Neut % (Auto) 75.4 H Lymph % (Auto) 14.1 L Sanders % (Auto) 10.2 H Eos % (Auto) 0.1 Baso % (Auto) 0.2 Neut # 7.2 H Lymph # 1.3 Sanders # 1.0 H Eos # 0.0 Baso # 0.0 Sodium 137 Potassium 3.3 L Chloride 100 Carbon Dioxide 26 Anion Gap 14 BUN 15 Creatinine 0.7 Est GFR ( Amer) > 60 Est GFR (Non-Af Amer) > 60 Random Glucose 123 H Calcium 8.7 Total Bilirubin 0.7 AST 17 ALT 16 Alkaline Phosphatase 80 Total Protein 6.5 Albumin 3.5 D Globulin 3.0 Albumin/Globulin Ratio 1.2 Urine Color Yellow Urine Clarity Hazy Urine pH 6.0 Ur Specific [place] 1.025 Urine Protein 2+ H Urine Glucose (UA) 1+ Urine Ketones 1+ H Urine Blood Negative Urine Nitrate Negative Urine Bilirubin Negative Urine Urobilinogen Normal Ur Leukocyte Esterase 2+ H Urine WBC (Auto) 19 H Urine RBC (Auto) 5 H Ur Squamous Epith Cells 46 H Urine Bacteria Occ H Assessment & Plan - Assessment and Plan (Free Text) Assessment: 56F w/ SBO x 3 days Plan: - NPO - patient refused NGT - Increase NS rate as patient will be NPO - OR tomorrow morning if symptoms do not improve D/w Dr. Lizeth Olmedo, PGY2 - Date & Time Date: 09/14/16 Time: 16:23
--- NOTE | 2016-09-14 17:20 | CP.PCM.PN ---
Subjective - Date & Time of Evaluation Date of Evaluation: 09/14/16 Time of Evaluation: 12:00 - Subjective Subjective: clinically same Objective - Vital Signs/Intake and Output Vital Signs (last 24 hours): Temp Pulse Resp BP Pulse Ox 98.6 F 72 20 165/100 H 99 09/14/16 15:48 09/14/16 15:48 09/14/16 15:48 09/14/16 15:48 09/14/16 15:48 Intake and Output: 09/14/16 09/14/16 06:59 18:59 Intake Total 990 Balance 990 - Medications Medications: Current Medications Enoxaparin Sodium (Lovenox) 40 mg SC DAILY [facility] Last Admin: 09/14/16 10:02 Dose: 40 mg Hydralazine HCl (Apresoline) 10 mg IVP Q6H PRN PRN Reason: SBP> 160 Lactated Ringer's (Lactated Ringer's 500ml) 500 mls @ 75 mls/hr IV .Q6H40M [facility] Stop: 09/14/16 21:30 Last Admin: 09/14/16 01:03 Dose: Not Given Sodium Chloride (Sodium Chloride 0.9%) 1,000 mls @ 100 mls/hr IV .Q10H [facility] Last Admin: 09/14/16 16:18 Dose: 100 mls/hr Morphine Sulfate (Morphine) 2 mg IVP Q4 PRN PRN Reason: Pain, severe (8-10) Last Admin: 09/14/16 16:13 Dose: 2 mg Ondansetron HCl (Zofran Inj) 4 mg IVP Q6H PRN PRN Reason: Nausea/Vomiting Last Admin: 09/14/16 14:35 Dose: 4 mg Pantoprazole Sodium (Protonix Inj) 40 mg IVP ACB [facility] Last Admin: 09/14/16 10:39 Dose: 40 mg - Labs Labs: 09/14/16 07:03 09/14/16 07:03 PT 10.3 SECONDS (9.7-12.2) 09/13/16 05:06 INR 0.9 09/13/16 05:06 APTT 31 SECONDS (21-34) 09/13/16 05:06 - Constitutional Appears: Well - Head Exam Head Exam: ATRAUMATIC, NORMAL INSPECTION, NORMOCEPHALIC - Eye Exam Eye Exam: EOMI, Normal appearance, PERRL Pupil Exam: NORMAL ACCOMODATION, PERRL - ENT Exam ENT Exam: Mucous Membranes Moist, Normal Exam - Neck Exam Neck Exam: Full ROM, Normal Inspection. absent: Lymphadenopathy - Respiratory Exam Respiratory Exam: Decreased Breath Sounds - Cardiovascular Exam Cardiovascular Exam: REGULAR RHYTHM, +S1, +S2 - GI/Abdominal Exam GI & Abdominal Exam: Soft, Diminished Bowel Sounds - Rectal Exam Rectal Exam: Deferred Assessment and Plan - Assessment and Plan (Free Text) Plan: pt lazara throw up so ct scan was done whci was neg first one adn now second shows small mechanical ostruction called lazara same npo ng tube suctioning
[2016-09-14] MEDS ORDERED: DiphenhydrAMINE 50 mg/ml Inj IM ONE (21:22)
--- NOTE | 2016-09-15 03:31 | CP.PCM.PN ---
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 Rosa Myers. Pt initially had refused therapy earlier. When asked about ENT problems, pt admitted "large hole in septum from history of cocaine use." NG tube therapy explained to pt in setting of SBO. No issues with placement. Gastric bubbles heard via auscultation. Will get confirmatory Portable CXR. 350 ml of dark fluid immediately removed when connected to wall suction. Simeon Hobbs PGY-1 Objective - Vital Signs/Intake and Output Vital Signs (last 24 hours): Temp Pulse Resp BP Pulse Ox 98.4 F 98 H 20 171/105 H 99 09/14/16 23:10 09/14/16 23:10 09/14/16 23:10 09/14/16 23:10 09/14/16 23:10 Intake and Output: 09/14/16 09/15/16 18:59 06:59 Intake Total 990 800 Balance 990 800 - Medications Medications: Current Medications Enoxaparin Sodium (Lovenox) 40 mg SC DAILY [facility] Last Admin: 09/14/16 10:02 Dose: 40 mg Hydralazine HCl (Apresoline) 10 mg IVP Q6H PRN PRN Reason: SBP> 160 Last Admin: 09/15/16 02:16 Dose: 10 mg Sodium Chloride (Sodium Chloride 0.9%) 1,000 mls @ 100 mls/hr IV .Q10H [facility] Last Admin: 09/14/16 16:18 Dose: 100 mls/hr Morphine Sulfate (Morphine) 2 mg IVP Q4 PRN PRN Reason: Pain, severe (8-10) Last Admin: 09/14/16 21:37 Dose: 2 mg Ondansetron HCl (Zofran Inj) 4 mg IVP Q6H PRN PRN Reason: Nausea/Vomiting Last Admin: 09/15/16 02:25 Dose: 4 mg Pantoprazole Sodium (Protonix Inj) 40 mg IVP ACB [facility] Last Admin: 09/14/16 10:39 Dose: 40 mg - Labs Labs: 09/14/16 07:03 09/14/16 07:03 PT 10.3 SECONDS (9.7-12.2) 09/13/16 05:06 INR 0.9 09/13/16 05:06 APTT 31 SECONDS (21-34) 09/13/16 05:06
[2016-09-15] MEDS: Sodium Chloride 0.9% 1,000 ML IV SCH ×3 (04:18→21:38)
--- NOTE | 2016-09-15 08:10 | CP.PCM.PN ---
<Samia Santo - Last Filed: 09/15/16 09:28> Subjective - Date & Time of Evaluation Date of Evaluation: 09/15/16 Time of Evaluation: 08:08 - Subjective Subjective: Gastroenterology Fellow/PGY4 Progress Note Patient notes persistent diffuse abdominal discomfort. NG tube placed at 3AM with removal at 6AM. Estimated 400cc NG output. No bowel movement yesterday. A 12-point review of systems negative except for as above. Objective - Vital Signs/Intake and Output Vital Signs (last 24 hours): Temp Pulse Resp BP Pulse Ox 99 F 110 H 20 145/89 96 09/15/16 04:49 09/15/16 04:49 09/15/16 04:49 09/15/16 04:49 09/15/16 04:49 Intake and Output: 09/15/16 09/15/16 06:59 18:59 Intake Total 800 Balance 800 - Medications Medications: Current Medications Enoxaparin Sodium (Lovenox) 40 mg SC DAILY [facility] Last Admin: 09/14/16 10:02 Dose: 40 mg Hydralazine HCl (Apresoline) 10 mg IVP Q6H PRN PRN Reason: SBP> 160 Last Admin: 09/15/16 02:16 Dose: 10 mg Sodium Chloride (Sodium Chloride 0.9%) 1,000 mls @ 100 mls/hr IV .Q10H [facility] Last Admin: 09/15/16 04:18 Dose: Not Given Morphine Sulfate (Morphine) 2 mg IVP Q4 PRN PRN Reason: Pain, severe (8-10) Last Admin: 09/14/16 21:37 Dose: 2 mg Ondansetron HCl (Zofran Inj) 4 mg IVP Q6H PRN PRN Reason: Nausea/Vomiting Last Admin: 09/15/16 02:25 Dose: 4 mg Pantoprazole Sodium (Protonix Inj) 40 mg IVP ACB [facility] Last Admin: 09/14/16 10:39 Dose: 40 mg - Labs Labs: 09/14/16 07:03 09/14/16 07:03 PT 10.3 SECONDS (9.7-12.2) 09/13/16 05:06 INR 0.9 09/13/16 05:06 APTT 31 SECONDS (21-34) 09/13/16 05:06 - Constitutional Appears: Non-toxic, No Acute Distress - Head Exam Head Exam: ATRAUMATIC, NORMOCEPHALIC - Eye Exam Eye Exam: EOMI, PERRL Pupil Exam: PERRL. absent: Miosis, Mydriatic - ENT Exam ENT Exam: Mucous Membranes Moist, Normal Oropharynx - Neck Exam Neck Exam: Full ROM, Normal Inspection - Respiratory Exam Respiratory Exam: Clear to Ausculation Bilateral. absent: Rales, Rhonchi, Wheezes - Cardiovascular Exam Cardiovascular Exam: RRR, +S1, +S2. absent: Gallop, Rubs - GI/Abdominal Exam GI & Abdominal Exam: Soft, Tenderness, Normal Bowel Sounds. absent: Distended, Firm, Guarding, Rigid, Organomegaly, Rebound Additional comments: diffuse tenderness to palpation worse at B/L LQ - Extremities Exam Extremities Exam: Full ROM. absent: Pedal Edema - Neurological Exam Neurological Exam: Alert, Awake - Psychiatric Exam Psychiatric exam: Normal Affect, Normal Mood - Skin Skin Exam: Dry, Intact, Normal Color, Warm Assessment and Plan - Assessment and Plan (Free Text) Assessment: 56 year old female with history of Hypertension presenting with abdominal pain, nausea, and vomiting. CT A/P w/o contrast showed SBO ewith proximal terminal ileum transition point and sigmoid diverticulosis. Ultrasound showe dhepatic steatosis, no gallstones, CBD 4mm, 2 nonspecific right hepatic lobe coarse calcifcations. POD2(09/13) EGD showed erosive gastritis, 1cm hiatal hernia, and duodenal polyp. Plan: >NGT- 400cc in 3 hours early this morning -removed at patient request >surgery managing- OR today for exploratory laparotomy >NPO >supportive care: IVFs, PPI, antiemetics, pain control >will follow clinical course <Juan Vyas - Last Filed: 09/15/16 09:39> Objective - Vital Signs/Intake and Output Vital Signs (last 24 hours): Temp Pulse Resp BP Pulse Ox 99 F 110 H 20 145/89 96 09/15/16 04:49 09/15/16 04:49 09/15/16 04:49 09/15/16 04:49 09/15/16 04:49 Intake and Output: 09/15/16 09/15/16 06:59 18:59 Intake Total 800 Balance 800 - Medications Medications: Current Medications Enoxaparin Sodium (Lovenox) 40 mg SC DAILY [facility] Last Admin: 09/14/16 10:02 Dose: 40 mg Hydralazine HCl (Apresoline) 10 mg IVP Q6H PRN PRN Reason: SBP> 160 Last Admin: 09/15/16 02:16 Dose: 10 mg Sodium Chloride (Sodium Chloride 0.9%) 1,000 mls @ 100 mls/hr IV .Q10H [facility] Last Admin: 09/15/16 04:18 Dose: Not Given Morphine Sulfate (Morphine) 2 mg IVP Q4 PRN PRN Reason: Pain, severe (8-10) Last Admin: 09/14/16 21:37 Dose: 2 mg Ondansetron HCl (Zofran Inj) 4 mg IVP Q6H PRN PRN Reason: Nausea/Vomiting Last Admin: 09/15/16 02:25 Dose: 4 mg Pantoprazole Sodium (Protonix Inj) 40 mg IVP ACB [facility] Last Admin: 09/15/16 08:21 Dose: 40 mg - Labs Labs: 09/15/16 08:41 09/15/16 08:41 PT 10.3 SECONDS (9.7-12.2) 09/13/16 05:06 INR 0.9 09/13/16 05:06 APTT 31 SECONDS (21-34) 09/13/16 05:06 Attending/Attestation - Attestation I have personally seen and examined this patient.: Yes I have fully participated in the care of the patient.: Yes I have reviewed all pertinent clinical information, including history, physical exam and plan: Yes Notes (Text): 09/15/16 09:35 I have seen and examined patient with GI fellow. Events overnight noted, fecal output via NGT which patient removed. She complains of ongoing diffuse abdominal discomfort with inability to tolerate PO diet. Review of vitals from today shows tachycardia. HTN Abdominal pain, vomiting - small bowel obstruction EGD biopsy results show no significant abnormalities - NPO - IVF hydration therapy, continue supportive care - Anti-emetic therapy PRN - Pain control - Patient planned for exploratory laparotomy today with surgical team, follow up recommendations - Patient would benefit from elective outpatient colonoscopy following resolution of acute symptoms
--- NOTE | 2016-09-15 08:39 | CP.PCM.PCO ---
Physician Communication Note - Physician Communication Note Physician Communication Note: OR today for exploratory laparotomy
[2016-09-15 08:52] LABS: BASO % 0.5 % (0.0-2.0); EOS % 0.3 % (0.0-4.0); HEMATOCRIT 42.2 % (34.0-47.0); LYMPH # 1.9 K/uL (1.0-4.3); LYMPH % 21.3 % (20.0-40.0); MEAN CELL VOLUME 96.7 fL (81.0-99.0); MEAN CORPUSCULAR HEMOGLOBIN 32.1 pg (27.0-31.0); MEAN CORPUSCULAR HGB CONC 33.2 g/dL (33.0-37.0); MEAN PLATELET VOLUME 8.4 fL (7.2-11.7); MONO % 10.7 % (0.0-10.0); NRBC % 0.1 % (0.0-2.0); RED CELL DISTRIBUTION WIDTH 14.2 % (11.5-14.5); WHITE BLOOD COUNT 8.9 K/uL (4.8-10.8)
--- NOTE | 2016-09-15 08:52 | RAD ---
HISTORY: NGT placement COMPARISON: 09/15/2016 FINDINGS: LUNGS: NG tube extending into the stomach. Mild venous congestion. Minimal patchy bibasilar airspace opacities. Biapical pleural thickening. PLEURA: No significant pleural effusion identified, no pneumothorax apparent. CARDIOVASCULAR: Normal. OSSEOUS STRUCTURES: No significant abnormalities. VISUALIZED UPPER ABDOMEN: Normal. OTHER FINDINGS: Multiple tubing and devices as well as radiopaque densities project over the bilateral talisha thoraces, possibly external. Clinical correlation. IMPRESSION: NG tube extending into the stomach. Mild venous congestion. Minimal patchy bibasilar airspace opacities. Biapical pleural thickening.
[2016-09-15 08:58] LABS: CHLORIDE 105 mmol/L (98-107)
[2016-09-15 08:59] LABS: POTASSIUM 3.4 mmol/L (3.6-5.2); SODIUM 138 mmol/L (132-148)
[2016-09-15 09:01] LABS: ALB/GLOB RATIO 1.3 (1.0-2.1); ALKALINE PHOSPHATASE 61 U/L (38-126); AST/SGOT 15 U/L (14-36); BILIRUBIN,TOTAL 0.7 mg/dL (0.2-1.3); BLOOD UREA NITROGEN 12 mg/dL (7-17); CARBON DIOXIDE 25 mmol/L (22-30); GFR AFRICAN-AMERICAN > 60; TOTAL PROTEIN 5.9 g/dL (6.3-8.3)
[2016-09-15 09:02] LABS: ALT/SGPT 14 U/L (9-52); CALCIUM 8.7 mg/dl (8.6-10.4); GLUCOSE,RANDOM 85 mg/dL (65-105)
[2016-09-15] MEDS ORDERED: Midazolam 2 MG/2 ML VIAL ONE (13:03)
[2016-09-15] MEDS ORDERED: Propofol 10 mg/ml Inj (20 ML) ONE ×2 (13:03)
--- NOTE | 2016-09-15 13:05 | CP.PCM.PN ---
Subjective - Date & Time of Evaluation Date of Evaluation: 09/15/16 Time of Evaluation: 11:20 - Subjective Subjective: clinically same Objective - Vital Signs/Intake and Output Vital Signs (last 24 hours): Temp Pulse Resp BP Pulse Ox 99 F 98 H 20 145/89 96 09/15/16 04:49 09/15/16 07:30 09/15/16 04:49 09/15/16 04:49 09/15/16 04:49 Intake and Output: 09/15/16 09/15/16 06:59 18:59 Intake Total 800 Balance 800 - Medications Medications: Current Medications Enoxaparin Sodium (Lovenox) 40 mg SC DAILY [facility] Last Admin: 09/14/16 10:02 Dose: 40 mg Hydralazine HCl (Apresoline) 10 mg IVP Q6H PRN PRN Reason: SBP> 160 Last Admin: 09/15/16 02:16 Dose: 10 mg Sodium Chloride (Sodium Chloride 0.9%) 1,000 mls @ 100 mls/hr IV .Q10H [facility] Last Admin: 09/15/16 04:18 Dose: Not Given Morphine Sulfate (Morphine) 2 mg IVP Q4 PRN PRN Reason: Pain, severe (8-10) Last Admin: 09/14/16 21:37 Dose: 2 mg Ondansetron HCl (Zofran Inj) 4 mg IVP Q6H PRN PRN Reason: Nausea/Vomiting Last Admin: 09/15/16 02:25 Dose: 4 mg Pantoprazole Sodium (Protonix Inj) 40 mg IVP ACB [facility] Last Admin: 09/15/16 08:21 Dose: 40 mg - Labs Labs: 09/15/16 08:41 09/15/16 08:41 PT 10.3 SECONDS (9.7-12.2) 09/13/16 05:06 INR 0.9 09/13/16 05:06 APTT 31 SECONDS (21-34) 09/13/16 05:06 - Constitutional Appears: Well - Head Exam Head Exam: ATRAUMATIC, NORMAL INSPECTION, NORMOCEPHALIC - Eye Exam Eye Exam: EOMI, Normal appearance, PERRL Pupil Exam: NORMAL ACCOMODATION, PERRL - ENT Exam ENT Exam: Mucous Membranes Moist, Normal Exam - Neck Exam Neck Exam: Full ROM, Normal Inspection. absent: Lymphadenopathy - Respiratory Exam Respiratory Exam: Decreased Breath Sounds - Cardiovascular Exam Cardiovascular Exam: REGULAR RHYTHM, +S1, +S2 - GI/Abdominal Exam GI & Abdominal Exam: Soft, Diminished Bowel Sounds - Rectal Exam Rectal Exam: Deferred
[2016-09-15] MEDS ORDERED: metroNIDAZOLE IV 500 mg/100 ml 500 MG/100 ML BAG ONE (13:22)
[2016-09-15] MEDS ORDERED: ceFAZolin IV 1 gm in Dextrose 1 GM/50 ML BAG IVPB ONE (13:22)
[2016-09-15] MEDS ORDERED: Neostigmine Methylsulfate 3mg/3ml Syringe IV ONE (13:44)
[2016-09-15] MEDS ORDERED: Labetalol 25mg/5ml Syringe ONE (14:02)
--- NOTE | 2016-09-15 14:21 | PCM.SURG1 ---
Surgeon's Initial Post Op Note - Surgeon's Notes Surgeon: Dr Stanley Mold Sprayer: Dr Olmedo PGY2 Type of Anesthesia: General Endo Pre-Operative Diagnosis: small bowel obstruction Operative Findings: multiple adhesions Post-Operative Diagnosis: as above Operation Performed: Exploratory laparotomy. lysis of adhesions Specimen/Specimens Removed: none Estimated Blood Loss: EBL {In ML}: 20 Blood Products Given: N/A Drains Used: No Drains Post-Op Condition: Good Date of Surgery/Procedure: 09/15/16 Time of Surgery/Procedure: 14:21
[2016-09-15] MEDS ORDERED: Morphine Monoject Barrel PCA 1mg/ml IV PRN (14:22)
[2016-09-15] MEDS: HYDROmorphone 0.5 mg/0.5 ml ISec IVP PRN ×3 (14:26→14:55)
[2016-09-15] MEDS ORDERED: HYDROmorphone 0.5 mg/0.5 ml ISec ONE (14:28)
--- NOTE | 2016-09-15 14:39 | OP ---
PROCEDURE DATE: 09/14/2016 PREOPERATIVE DIAGNOSIS: Intestinal obstruction. POSTOPERATIVE DIAGNOSIS: Intestinal obstruction. PROCEDURE PERFORMED: Exploratory laparotomy and lysis of adhesions. FINDINGS: There is a large amount of acidic fluid which is probable old transudate. There is a loop of intestine small bowel which is part of the closed loop obstruction because there were 2 adhesive bands on 2 separate areas of this loop of small bowel. The small bowel is dusky in color, but it tur ivana back to almost viable color before the end of discharge. Multiple adhesions were also noted in t he pelvis. PROCEDURE: Under general anesthesia, the patient was prepared and draped in usual sterile fashion. A midline incision was made. It was extended down to subcutaneous tissue. Bleeders controlled with electrocautery. The peritoneal cavity was entered. Adhesions were taken down involving the omentum and the anterior abdominal wall. The pelvic adhesions were also taken down and also the 2 bands of a dhesions involving the volvulus were also lysed. This allowed the return of almost normal color to t hat loop of intestine. Some serosal tears which were noted were plicated with multiple interrupted s utures of 3-0 chromic. The entire abdomen was then irrigated with a large amount of saline solution with bacitracin and then was suctioned out. The abdomen was then closed in layers utilizing continuo us #1 Vicryl for the peritoneum, [id number] suture of the same suture materials for the fascia a nd the skin with multiple skin keenan. Estimated blood loss probably about 50 mL. The patient francesca rated the procedure quite well and left the operating room in good condition. Dr. Olmedo was the ass istant for this surgery. Russell Stanley MD cc: [id number] TT: 09/15/2016 14:38:18 tn
[2016-09-15] MEDS: Ciprofloxacin 400mg/200ml D5W 400 MG/200 ML BAG IVPB SCH (14:40)
[2016-09-15] MEDS: metroNIDAZOLE IV 500 mg/100 ml 500 MG/100 ML BAG IVPB SCH (21:38)
[2016-09-15] MEDS: DiphenhydrAMINE 50 mg/ml Inj IVP ONE ×2 (21:39→22:55)
[2016-09-15] MEDS ORDERED: Sodium Chloride 0.9% 1,000 ML IV ONE (22:08)
[2016-09-16] MEDS: Ciprofloxacin 400mg/200ml D5W 400 MG/200 ML BAG IVPB SCH (02:05)
[2016-09-16] MEDS: metroNIDAZOLE IV 500 mg/100 ml 500 MG/100 ML BAG IVPB SCH (05:16)
[2016-09-16] MEDS ORDERED: Benzocaine/Menthol (Cepacol) Lozenge MT PRN (06:59)
--- NOTE | 2016-09-16 07:48 | CP.PCM.PN ---
<Samia Santo - Last Filed: 09/16/16 09:57> Subjective - Date & Time of Evaluation Date of Evaluation: 09/16/16 Time of Evaluation: 07:45 - Subjective Subjective: Gastroenterology Fellow/PGY4 Progress Note Patient admits to abdominal soreness post exploratory laparotomy. NG tube tube with 200cc output. No flatulence or bowel movement in last 24 hours. A 12-point review of systems negative except for as above. Objective - Vital Signs/Intake and Output Vital Signs (last 24 hours): Temp Pulse Resp BP Pulse Ox 99 F 69 20 102/67 97 09/16/16 04:12 09/16/16 04:12 09/16/16 04:12 09/16/16 04:12 09/15/16 23:10 Intake and Output: 09/16/16 09/16/16 06:59 18:59 Intake Total 2000 Output Total 150 Balance 1850 - Medications Medications: Current Medications Benzocaine/Menthol (Cepacol Sore Throat) 1 arlin MT Q2H PRN PRN Reason: Sore Throat Enoxaparin Sodium (Lovenox) 40 mg SC DAILY [facility] Last Admin: 09/14/16 10:02 Dose: 40 mg Hydralazine HCl (Apresoline) 10 mg IVP Q6H PRN PRN Reason: SBP> 160 Last Admin: 09/15/16 02:16 Dose: 10 mg Sodium Chloride (Sodium Chloride 0.9%) 1,000 mls @ 100 mls/hr IV .Q10H [facility] Last Admin: 09/15/16 21:38 Dose: 100 mls/hr Morphine Sulfate/Sodium Chloride (Morphine Supervisor Tan Room Monoject Barrel) 30 mg IV PRN PRN; Protocol PRN Reason: Pain, Mild (1-3) Stop: 09/16/16 14:23 Last Admin: 09/16/16 00:56 Dose: 30 mg Ondansetron HCl (Zofran Inj) 4 mg IVP Q6H PRN PRN Reason: Nausea/Vomiting Last Admin: 09/15/16 02:25 Dose: 4 mg Pantoprazole Sodium (Protonix Inj) 40 mg IVP ACB [facility] Last Admin: 09/15/16 08:21 Dose: 40 mg - Labs Labs: 09/15/16 08:41 09/15/16 08:41 PT 10.3 SECONDS (9.7-12.2) 09/13/16 05:06 INR 0.9 09/13/16 05:06 APTT 31 SECONDS (21-34) 09/13/16 05:06 - Constitutional Appears: Non-toxic, No Acute Distress - Head Exam Head Exam: ATRAUMATIC, NORMOCEPHALIC - Eye Exam Eye Exam: EOMI, PERRL Pupil Exam: PERRL. absent: Miosis, Mydriatic - ENT Exam ENT Exam: Mucous Membranes Moist, Normal Oropharynx Additional comments: NG in place right nares - Neck Exam Neck Exam: Full ROM, Normal Inspection - Respiratory Exam Respiratory Exam: Clear to Ausculation Bilateral. absent: Rales, Rhonchi, Wheezes - Cardiovascular Exam Cardiovascular Exam: RRR, +S1, +S2. absent: Gallop, Rubs - GI/Abdominal Exam GI & Abdominal Exam: Soft, Tenderness, Normal Bowel Sounds. absent: Distended, Firm, Guarding, Rigid, Organomegaly, Rebound Additional comments: vertical dressing in place C/D/I, diffuse discomfort to palpation - Extremities Exam Extremities Exam: Full ROM. absent: Pedal Edema - Neurological Exam Neurological Exam: Alert, Awake - Psychiatric Exam Psychiatric exam: Normal Affect, Normal Mood - Skin Skin Exam: Dry, Intact, Normal Color, Warm Assessment and Plan - Assessment and Plan (Free Text) Assessment: 56 year old female with history of Hypertension presenting with abdominal pain, nausea, and vomiting. CT A/P w/o contrast showed SBO with proximal terminal ileum transition point and sigmoid diverticulosis. Ultrasound showed hepatic steatosis, no gallstones, CBD 4mm, 2 nonspecific right hepatic lobe coarse calcifications. POD 1( 09/15) exploratory laparotomy with lysis of adhesions enclosing small bowel loop causing obstruction. EGD 09/13 showed erosive gastritis , 1cm hiatal hernia, and duodenal polyp. 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 >serial abdominal exams >supportive care: PPI, antiemetics >will benefit from elective outpatient colonoscopy >thank you for opportunity to participate in the car of this patient <Juan Vyas - Last Filed: 09/16/16 10:14> Objective - Vital Signs/Intake and Output Vital Signs (last 24 hours): Temp Pulse Resp BP Pulse Ox 99.2 F 88 20 107/62 96 09/16/16 08:15 09/16/16 08:15 09/16/16 08:15 09/16/16 08:15 09/16/16 08:15 Intake and Output: 09/16/16 09/16/16 06:59 18:59 Intake Total 2000 Output Total 150 Balance 1850 - Medications Medications: Current Medications Benzocaine/Menthol (Cepacol Sore Throat) 1 arlin MT Q2H PRN PRN Reason: Sore Throat Last Admin: 09/16/16 08:55 Dose: 1 arlin Enoxaparin Sodium (Lovenox) 40 mg SC DAILY [facility] Last Admin: 09/16/16 09:59 Dose: 40 mg Hydralazine HCl (Apresoline) 10 mg IVP Q6H PRN PRN Reason: SBP> 160 Last Admin: 09/15/16 02:16 Dose: 10 mg Sodium Chloride (Sodium Chloride 0.9%) 1,000 mls @ 100 mls/hr IV .Q10H [facility] Last Admin: 09/16/16 08:54 Dose: Not Given Morphine Sulfate/Sodium Chloride (Morphine Supervisor Tan Room Monoject Barrel) 30 mg IV PRN PRN; Protocol PRN Reason: Pain, Mild (1-3) Stop: 09/16/16 14:23 Last Admin: 09/16/16 00:56 Dose: 30 mg Ondansetron HCl (Zofran Inj) 4 mg IVP Q6H PRN PRN Reason: Nausea/Vomiting Last Admin: 09/15/16 02:25 Dose: 4 mg Pantoprazole Sodium (Protonix Inj) 40 mg IVP ACB [facility] Last Admin: 09/16/16 08:36 Dose: 40 mg - Labs Labs: 09/16/16 08:06 09/16/16 08:06 PT 10.3 SECONDS (9.7-12.2) 09/13/16 05:06 INR 0.9 09/13/16 05:06 APTT 31 SECONDS (21-34) 09/13/16 05:06 Attending/Attestation - Attestation I have personally seen and examined this patient.: Yes I have fully participated in the care of the patient.: Yes I have reviewed all pertinent clinical information, including history, physical exam and plan: Yes Notes (Text): 09/16/16 10:11 I have seen and examined patient with GI fellow. No acute events overnight, she is POD #1 following exploratory laparotomy with PASCUAL. She complains of abdominal pain at surgical site but otherwise denies nausea, vomiting, fever/ chills. NGT with approximately 200 cc output over last nursing shift. Review of vitals from today are normal. No flatus reported thus far. HTN Abdominal pain - small bowel obstruction s/p surgical intervention - NPO - NGT to suction, monitor output - Continue with supportive care, pain control - Further plan and management as per surgical team - Suggest elective outpatient colonoscopy following resolution of acute SBO. No further planned GI intervention, will sign off case. Please reconsult as necessary, thank you.
--- NOTE | 2016-09-16 07:48 | CP.PCM.PN ---
Subjective - Date & Time of Evaluation Date of Evaluation: 09/16/16 Time of Evaluation: 07:48 - Subjective Subjective: Gen Sx: Dr Stanley Pt S&E. NAEO. POD#1 s/p ex-lap w/ PASCUAL for SBO. Doing well. Reports less abdominal pain, just sore. Controlled with CHUCK SPLITTER. NGT to suction, ~250cc billous drainage. Has been OOB and ambulating. Voiding independently. Objective - Vital Signs/Intake and Output Vital Signs (last 24 hours): Temp Pulse Resp BP Pulse Ox 99 F 69 20 102/67 97 09/16/16 04:12 09/16/16 04:12 09/16/16 04:12 09/16/16 04:12 09/15/16 23:10 Intake and Output: 09/16/16 09/16/16 06:59 18:59 Intake Total 2000 Output Total 150 Balance 1850 - Medications Medications: Current Medications Benzocaine/Menthol (Cepacol Sore Throat) 1 arlin MT Q2H PRN PRN Reason: Sore Throat Enoxaparin Sodium (Lovenox) 40 mg SC DAILY [facility] Last Admin: 09/14/16 10:02 Dose: 40 mg Hydralazine HCl (Apresoline) 10 mg IVP Q6H PRN PRN Reason: SBP> 160 Last Admin: 09/15/16 02:16 Dose: 10 mg Sodium Chloride (Sodium Chloride 0.9%) 1,000 mls @ 100 mls/hr IV .Q10H [facility] Last Admin: 09/15/16 21:38 Dose: 100 mls/hr Morphine Sulfate/Sodium Chloride (Morphine Lifter/Driver Monoject Barrel) 30 mg IV PRN PRN; Protocol PRN Reason: Pain, Mild (1-3) Stop: 09/16/16 14:23 Last Admin: 09/16/16 00:56 Dose: 30 mg Ondansetron HCl (Zofran Inj) 4 mg IVP Q6H PRN PRN Reason: Nausea/Vomiting Last Admin: 09/15/16 02:25 Dose: 4 mg Pantoprazole Sodium (Protonix Inj) 40 mg IVP ACB [facility] Last Admin: 09/15/16 08:21 Dose: 40 mg - Labs Labs: 09/15/16 08:41 09/15/16 08:41 PT 10.3 SECONDS (9.7-12.2) 09/13/16 05:06 INR 0.9 09/13/16 05:06 APTT 31 SECONDS (21-34) 09/13/16 05:06 - Constitutional Appears: Non-toxic, No Acute Distress - Head Exam Head Exam: NORMAL INSPECTION - Respiratory Exam Respiratory Exam: absent: Accessory Muscle Use, Respiratory Distress - Cardiovascular Exam Cardiovascular Exam: REGULAR RHYTHM. absent: Tachycardia - GI/Abdominal Exam GI & Abdominal Exam: Soft, Tenderness. absent: Distended, Firm Additional comments: incision c/d/i, minimal drainage underneath - Neurological Exam Neurological Exam: Alert, Awake, Oriented x3 - Psychiatric Exam Psychiatric exam: Normal Affect, Normal Mood - Skin Skin Exam: Normal Color, Warm Assessment and Plan - Assessment and Plan (Free Text) Assessment: 56F POD#1 s/p ex-lap with PASCUAL Plan: cont NGT to suction until passing flatus encourage ambulation encourage IS use cont CHUCK SPLITTER for pain cepacoal lozenges for throat will d/w attending Samir Olmedo, PGY2
[2016-09-16 08:17] LABS: BASO % 0.2 % (0.0-2.0); EOS % 0.2 % (0.0-4.0); HEMATOCRIT 36.1 % (34.0-47.0); LYMPH # 1.3 K/uL (1.0-4.3); LYMPH % 15.8 % (20.0-40.0); MEAN CELL VOLUME 96.8 fL (81.0-99.0); MEAN CORPUSCULAR HEMOGLOBIN 32.5 pg (27.0-31.0); MEAN CORPUSCULAR HGB CONC 33.5 g/dL (33.0-37.0); MEAN PLATELET VOLUME 8.1 fL (7.2-11.7); MONO % 12.3 % (0.0-10.0); RED CELL DISTRIBUTION WIDTH 14.3 % (11.5-14.5); WHITE BLOOD COUNT 8.4 K/uL (4.8-10.8)
[2016-09-16 08:40] LABS: CHLORIDE 108 mmol/L (98-107); POTASSIUM 3.4 mmol/L (3.6-5.2); SODIUM 137 mmol/L (132-148)
[2016-09-16 08:42] LABS: BILIRUBIN,TOTAL 0.7 mg/dL (0.2-1.3); CARBON DIOXIDE 22 mmol/L (22-30); GFR AFRICAN-AMERICAN > 60
[2016-09-16 08:43] LABS: ALB/GLOB RATIO 1.1 (1.0-2.1); ALKALINE PHOSPHATASE 46 U/L (38-126); ALT/SGPT 22 U/L (9-52); AST/SGOT 17 U/L (14-36); BLOOD UREA NITROGEN 15 mg/dL (7-17); CALCIUM 7.7 mg/dl (8.6-10.4); GLUCOSE,RANDOM 88 mg/dL (65-105); MAGNESIUM 1.9 mg/dL (1.6-2.3); PHOSPHOROUS 3.8 mg/dL (2.5-4.5)
[2016-09-16] MEDS: Sodium Chloride 0.9% 1,000 ML IV SCH ×3 (08:54→21:59)
[2016-09-16] MEDS: Enoxaparin 40 mg Syringe SC SCH (09:59)
[2016-09-16] MEDS: DiphenhydrAMINE 50 mg/ml Inj IVP SCH ×3 (11:49→18:59)
--- NOTE | 2016-09-16 15:39 | CP.PCM.PN ---
Subjective - Date & Time of Evaluation Date of Evaluation: 09/16/16 Time of Evaluation: 09:25 - Subjective Subjective: clinically same Objective - Vital Signs/Intake and Output Vital Signs (last 24 hours): Temp Pulse Resp BP Pulse Ox 99.2 F 88 20 107/62 88 L 09/16/16 08:15 09/16/16 08:15 09/16/16 14:33 09/16/16 08:15 09/16/16 14:33 Intake and Output: 09/16/16 09/16/16 06:59 18:59 Intake Total 2000 Output Total 150 Balance 1850 - Medications Medications: Current Medications Benzocaine/Menthol (Cepacol Sore Throat) 1 arlin MT Q2H PRN PRN Reason: Sore Throat Last Admin: 09/16/16 08:55 Dose: 1 arlin Calcium/Vitamin D (Oyster Shell Calcium/Vitamin D 500 Mg-200 Iu) 1 tab PO BID [facility] Diphenhydramine HCl (Benadryl) 25 mg IVP TID [facility] Last Admin: 09/16/16 14:47 Dose: 25 mg Enoxaparin Sodium (Lovenox) 40 mg SC DAILY [facility] Last Admin: 09/16/16 09:59 Dose: 40 mg Hydralazine HCl (Apresoline) 10 mg IVP Q6H PRN PRN Reason: SBP> 160 Last Admin: 09/15/16 02:16 Dose: 10 mg Sodium Chloride (Sodium Chloride 0.9%) 1,000 mls @ 100 mls/hr IV .Q10H [facility] Last Admin: 09/16/16 14:47 Dose: 100 mls/hr Ondansetron HCl (Zofran Inj) 4 mg IVP Q6H PRN PRN Reason: Nausea/Vomiting Last Admin: 09/15/16 02:25 Dose: 4 mg Pantoprazole Sodium (Protonix Inj) 40 mg IVP ACB [facility] Last Admin: 09/16/16 08:36 Dose: 40 mg - Labs Labs: 09/16/16 08:06 09/16/16 08:06 PT 10.3 SECONDS (9.7-12.2) 09/13/16 05:06 INR 0.9 09/13/16 05:06 APTT 31 SECONDS (21-34) 09/13/16 05:06
[2016-09-16] MEDS ORDERED: Calcium-Vit D 500 mg-200 Units Tab UD PO SCH (18:00)
[2016-09-16] MEDS ORDERED: DiphenhydrAMINE 50 mg/ml Inj IVP PRN (19:02)
[2016-09-17] MEDS: Sodium Chloride 0.9% 1,000 ML IV SCH ×2 (01:15→04:10)
--- NOTE | 2016-09-17 07:36 | CP.PCM.PN ---
Subjective - Date & Time of Evaluation Date of Evaluation: 09/17/16 Time of Evaluation: 07:33 - Subjective Subjective: Gen Sx: Dr Stanley Pt S&E. PAO. POD#2 s/p exploratory laparotomy. Pain well controlled. Denies n/v, f/c. Complaining about NGT. Minimal drainage over past 24 hours. Has not yet passed flatus. OOB and ambulating. Objective - Vital Signs/Intake and Output Vital Signs (last 24 hours): Temp Pulse Resp BP Pulse Ox 99.1 F 93 H 20 127/76 97 09/16/16 23:10 09/17/16 00:30 09/16/16 23:10 09/16/16 23:10 09/16/16 23:10 Intake and Output: 09/17/16 09/17/16 06:59 18:59 Intake Total 1800 Output Total 780 Balance 1020 - Medications Medications: Current Medications Benzocaine/Menthol (Cepacol Sore Throat) 1 arlin MT Q2H PRN PRN Reason: Sore Throat Last Admin: 09/16/16 08:55 Dose: 1 arlin Diphenhydramine HCl (Benadryl) 25 mg IVP TID PRN PRN Reason: Itching / Pruritus Last Admin: 09/16/16 22:01 Dose: 25 mg Enoxaparin Sodium (Lovenox) 40 mg SC DAILY [facility] Last Admin: 09/16/16 09:59 Dose: 40 mg Hydralazine HCl (Apresoline) 10 mg IVP Q6H PRN PRN Reason: SBP> 160 Last Admin: 09/15/16 02:16 Dose: 10 mg Sodium Chloride (Sodium Chloride 0.9%) 1,000 mls @ 100 mls/hr IV .Q10H [facility] Last Admin: 09/17/16 01:15 Dose: 100 mls/hr Ondansetron HCl (Zofran Inj) 4 mg IVP Q6H PRN PRN Reason: Nausea/Vomiting Last Admin: 09/15/16 02:25 Dose: 4 mg Pantoprazole Sodium (Protonix Inj) 40 mg IVP ACB [facility] Last Admin: 09/16/16 08:36 Dose: 40 mg - Labs Labs: 09/16/16 08:06 09/16/16 08:06 PT 10.3 SECONDS (9.7-12.2) 09/13/16 05:06 INR 0.9 09/13/16 05:06 APTT 31 SECONDS (21-34) 09/13/16 05:06 - Constitutional Appears: Non-toxic, No Acute Distress - Head Exam Head Exam: NORMOCEPHALIC - ENT Exam ENT Exam: Mucous Membranes Moist - Respiratory Exam Respiratory Exam: absent: Accessory Muscle Use, Respiratory Distress - Cardiovascular Exam Cardiovascular Exam: REGULAR RHYTHM. absent: Tachycardia - GI/Abdominal Exam GI & Abdominal Exam: Soft, Tenderness (post-op and appropriate). 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
[2016-09-17] MEDS: Enoxaparin 40 mg Syringe SC SCH (11:54)
--- NOTE | 2016-09-17 17:27 | CP.PCM.PN ---
Subjective - Date & Time of Evaluation Date of Evaluation: 09/17/16 Time of Evaluation: 11:00 - Subjective Subjective: clinically same Objective - Vital Signs/Intake and Output Vital Signs (last 24 hours): Temp Pulse Resp BP Pulse Ox 98.2 F 108 H 20 138/80 100 09/17/16 16:00 09/17/16 16:00 09/17/16 16:00 09/17/16 16:00 09/17/16 16:00 Intake and Output: 09/17/16 09/17/16 06:59 18:59 Intake Total 1800 980 Output Total 780 Balance 1020 980 - Medications Medications: Current Medications Benzocaine/Menthol (Cepacol Sore Throat) 1 arlin MT Q2H PRN PRN Reason: Sore Throat Last Admin: 09/16/16 08:55 Dose: 1 arlin Diphenhydramine HCl (Benadryl) 25 mg IVP TID PRN PRN Reason: Itching / Pruritus Last Admin: 09/16/16 22:01 Dose: 25 mg Enoxaparin Sodium (Lovenox) 40 mg SC DAILY [facility] Last Admin: 09/17/16 11:54 Dose: 40 mg Hydralazine HCl (Apresoline) 10 mg IVP Q6H PRN PRN Reason: SBP> 160 Last Admin: 09/15/16 02:16 Dose: 10 mg Ondansetron HCl (Zofran Inj) 4 mg IVP Q6H PRN PRN Reason: Nausea/Vomiting Last Admin: 09/15/16 02:25 Dose: 4 mg Pantoprazole Sodium (Protonix Inj) 40 mg IVP ACB [facility] Last Admin: 09/17/16 08:07 Dose: 40 mg - Labs Labs: 09/16/16 08:06 09/16/16 08:06 PT 10.3 SECONDS (9.7-12.2) 09/13/16 05:06 INR 0.9 09/13/16 05:06 APTT 31 SECONDS (21-34) 09/13/16 05:06 - Constitutional Appears: Well - Head Exam Head Exam: ATRAUMATIC, NORMAL INSPECTION, NORMOCEPHALIC - Eye Exam Eye Exam: EOMI, Normal appearance, PERRL Pupil Exam: NORMAL ACCOMODATION, PERRL - ENT Exam ENT Exam: Mucous Membranes Moist, Normal Exam - Neck Exam Neck Exam: Full ROM, Normal Inspection. absent: Lymphadenopathy - Respiratory Exam Respiratory Exam: Decreased Breath Sounds - Cardiovascular Exam Cardiovascular Exam: REGULAR RHYTHM, +S1, +S2 - GI/Abdominal Exam GI & Abdominal Exam: Soft, Diminished Bowel Sounds - Rectal Exam Rectal Exam: Deferred
[2016-09-17] MEDS ORDERED: Morphine 4 MG/ML VIAL IVP PRN (18:24)
[2016-09-18 07:36] LABS: CHLORIDE 101 mmol/L (98-107); POTASSIUM 2.9 mmol/L (3.6-5.2); SODIUM 132 mmol/L (132-148)
[2016-09-18 07:38] LABS: GFR AFRICAN-AMERICAN > 60; HEMATOCRIT 37.2 % (34.0-47.0); MEAN CELL VOLUME 95.7 fL (81.0-99.0); MEAN CORPUSCULAR HEMOGLOBIN 32.3 pg (27.0-31.0); MEAN CORPUSCULAR HGB CONC 33.8 g/dL (33.0-37.0); MEAN PLATELET VOLUME 8.5 fL (7.2-11.7); RED CELL DISTRIBUTION WIDTH 13.9 % (11.5-14.5); WHITE BLOOD COUNT 9.4 K/uL (4.8-10.8)
[2016-09-18 07:39] LABS: BLOOD UREA NITROGEN 3 mg/dL (7-17); CALCIUM 8.3 mg/dl (8.6-10.4); CARBON DIOXIDE 19 mmol/L (22-30); GLUCOSE,RANDOM 107 mg/dL (65-105)
[2016-09-18] MEDS: Enoxaparin 40 mg Syringe SC SCH (09:29)
[2016-09-18] MEDS ORDERED: Sodium Chloride 0.9% 1,000 ML IV SCH (11:00)
--- NOTE | 2016-09-18 11:08 | CP.PCM.PN ---
Subjective - Date & Time of Evaluation Date of Evaluation: 09/18/16 Time of Evaluation: 11:06 - Subjective Subjective: Gen Sx: Dr Stanley Pt S&E. PAO. Was tolerating cLD but no flatus yet. States feels distended. OOB and ambulating. Pain controlled with toradol Objective - Vital Signs/Intake and Output Vital Signs (last 24 hours): Temp Pulse Resp BP Pulse Ox 97.9 F 92 H 18 158/100 H 97 09/18/16 07:30 09/18/16 07:30 09/18/16 07:30 09/18/16 07:30 09/18/16 07:30 Intake and Output: 09/18/16 09/18/16 06:59 18:59 Intake Total 640 Balance 640 - Medications Medications: Current Medications Benzocaine/Menthol (Cepacol Sore Throat) 1 arlin MT Q2H PRN PRN Reason: Sore Throat Last Admin: 09/16/16 08:55 Dose: 1 arlin Diphenhydramine HCl (Benadryl) 25 mg IVP TID PRN PRN Reason: Itching / Pruritus Last Admin: 09/16/16 22:01 Dose: 25 mg Enoxaparin Sodium (Lovenox) 40 mg SC DAILY [facility] Last Admin: 09/18/16 09:29 Dose: 40 mg Hydralazine HCl (Apresoline) 10 mg IVP Q6H PRN PRN Reason: SBP> 160 Last Admin: 09/18/16 00:13 Dose: 10 mg Sodium Chloride (Sodium Chloride 0.9%) 1,000 mls @ 100 mls/hr IV .Q10H [facility] Potassium Chloride (Potassium Chloride 20 Meq/100 Ml) 20 meq in 100 mls @ 50 mls/hr IVPB TID [facility] Stop: 09/19/16 11:59 Ketorolac Tromethamine (Toradol) 30 mg IVP Q6 [facility] Last Admin: 09/18/16 05:49 Dose: 30 mg Morphine Sulfate (Morphine) 4 mg IVP Q4 PRN PRN Reason: Pain, severe (8-10) Ondansetron HCl (Zofran Inj) 4 mg IVP Q6H PRN PRN Reason: Nausea/Vomiting Last Admin: 09/15/16 02:25 Dose: 4 mg Pantoprazole Sodium (Protonix Inj) 40 mg IVP ACB [facility] Last Admin: 09/18/16 08:03 Dose: 40 mg - Labs Labs: 09/18/16 07:07 09/18/16 07:07 PT 10.3 SECONDS (9.7-12.2) 09/13/16 05:06 INR 0.9 09/13/16 05:06 APTT 31 SECONDS (21-34) 09/13/16 05:06 - Constitutional Appears: Non-toxic, No Acute Distress - Respiratory Exam Respiratory Exam: absent: Accessory Muscle Use, Respiratory Distress - Cardiovascular Exam Cardiovascular Exam: REGULAR RHYTHM - GI/Abdominal Exam GI & Abdominal Exam: Distended, Soft, Tenderness, Hypoactive Bowel Sounds Additional comments: incision c/d/i - Neurological Exam Neurological Exam: Alert, Awake, Oriented x3 - Psychiatric Exam Psychiatric exam: Normal Affect, Normal Mood - Skin Skin Exam: Normal Color, Warm Assessment and Plan - Assessment and Plan (Free Text) Assessment: 56F POD#3 s/p ex-lap w/ PASCUAL Plan: doing well with adjusted pain regiment feeling distended - will hold off on CLD and make NPO for now K* replaced OOB and ambulate will follow d/w Dr Lizeth Olmedo, PGY2
--- NOTE | 2016-09-18 13:45 | CP.PCM.PN ---
Subjective - Date & Time of Evaluation Date of Evaluation: 09/18/16 Time of Evaluation: 11:20 - Subjective Subjective: clinically same Objective - Vital Signs/Intake and Output Vital Signs (last 24 hours): Temp Pulse Resp BP Pulse Ox 97.9 F 87 18 158/100 H 97 09/18/16 07:30 09/18/16 11:34 09/18/16 07:30 09/18/16 07:30 09/18/16 07:30 Intake and Output: 09/18/16 09/18/16 06:59 18:59 Intake Total 640 Balance 640 - Medications Medications: Current Medications Benzocaine/Menthol (Cepacol Sore Throat) 1 arlin MT Q2H PRN PRN Reason: Sore Throat Last Admin: 09/16/16 08:55 Dose: 1 arlin Diphenhydramine HCl (Benadryl) 25 mg IVP TID PRN PRN Reason: Itching / Pruritus Last Admin: 09/16/16 22:01 Dose: 25 mg Enoxaparin Sodium (Lovenox) 40 mg SC DAILY [facility] Last Admin: 09/18/16 09:29 Dose: 40 mg Hydralazine HCl (Apresoline) 10 mg IVP Q6H PRN PRN Reason: SBP> 160 Last Admin: 09/18/16 00:13 Dose: 10 mg Sodium Chloride (Sodium Chloride 0.9%) 1,000 mls @ 100 mls/hr IV .Q10H [facility] Last Admin: 09/18/16 12:10 Dose: 100 mls/hr Potassium Chloride (Potassium Chloride 20 Meq/100 Ml) 20 meq in 100 mls @ 50 mls/hr IVPB TID [facility] Stop: 09/18/16 19:59 Last Admin: 09/18/16 12:10 Dose: 50 mls/hr Ketorolac Tromethamine (Toradol) 30 mg IVP Q6 [facility] Last Admin: 09/18/16 12:11 Dose: 30 mg Morphine Sulfate (Morphine) 4 mg IVP Q4 PRN PRN Reason: Pain, severe (8-10) Ondansetron HCl (Zofran Inj) 4 mg IVP Q6H PRN PRN Reason: Nausea/Vomiting Last Admin: 09/15/16 02:25 Dose: 4 mg Pantoprazole Sodium (Protonix Inj) 40 mg IVP ACB [facility] Last Admin: 09/18/16 08:03 Dose: 40 mg Simethicone (Mylicon Liq) 40 mg PO QID [facility] - Labs Labs: 09/18/16 07:07 09/18/16 07:07 PT 10.3 SECONDS (9.7-12.2) 09/13/16 05:06 INR 0.9 09/13/16 05:06 APTT 31 SECONDS (21-34) 09/13/16 05:06 - Constitutional Appears: Well - Head Exam Head Exam: ATRAUMATIC, NORMAL INSPECTION, NORMOCEPHALIC - Eye Exam Eye Exam: EOMI, Normal appearance, PERRL Pupil Exam: NORMAL ACCOMODATION, PERRL - ENT Exam ENT Exam: Mucous Membranes Moist, Normal Exam - Neck Exam Neck Exam: Full ROM, Normal Inspection. absent: Lymphadenopathy - Respiratory Exam Respiratory Exam: Decreased Breath Sounds - Cardiovascular Exam Cardiovascular Exam: REGULAR RHYTHM, +S1, +S2 - GI/Abdominal Exam GI & Abdominal Exam: Soft, Diminished Bowel Sounds - Rectal Exam Rectal Exam: Deferred
[2016-09-18] MEDS: Simethicone 40 mg/0.6 ml Liquid (30 ml) PO SCH ×2 (18:05→21:48)
[2016-09-19] MEDS: Sodium Chloride 0.9% 1,000 ML IV SCH (00:41)
[2016-09-19 07:19] LABS: BASO % 0.6 % (0.0-2.0); EOS # 0.1 K/uL (0.0-0.7); EOS % 1.8 % (0.0-4.0); HEMATOCRIT 35.6 % (34.0-47.0); LYMPH # 1.1 K/uL (1.0-4.3); LYMPH % 19.3 % (20.0-40.0); MEAN CELL VOLUME 94.9 fL (81.0-99.0); MEAN CORPUSCULAR HEMOGLOBIN 32.1 pg (27.0-31.0); MEAN CORPUSCULAR HGB CONC 33.9 g/dL (33.0-37.0); MEAN PLATELET VOLUME 8.1 fL (7.2-11.7); MONO # 1.1 K/uL (0.0-0.8); MONO % 20.1 % (0.0-10.0); PLATELET COUNT 311 K/uL (130-400); WHITE BLOOD COUNT 5.7 K/uL (4.8-10.8)
[2016-09-19 07:24] LABS: CHLORIDE 105 mmol/L (98-107); POTASSIUM 3.4 mmol/L (3.6-5.2); SODIUM 135 mmol/L (132-148)
--- NOTE | 2016-09-19 07:24 | CP.PCM.PN ---
Subjective - Date & Time of Evaluation Date of Evaluation: 09/19/16 Time of Evaluation: 07:22 - Subjective Subjective: Gen Sx: Dr Stanley pt S&E. PAO. Minimal abdominal discomfort. Passing a lot of flatus. Tolerating FLD. Pt wants to be discharged today Objective - Vital Signs/Intake and Output Vital Signs (last 24 hours): Temp Pulse Resp BP Pulse Ox 98.2 F 95 H 20 143/88 96 09/18/16 23:10 09/19/16 00:00 09/18/16 23:10 09/18/16 23:10 09/18/16 23:10 Intake and Output: 09/19/16 09/19/16 06:59 18:59 Intake Total 1870 Balance 1870 - Medications Medications: Current Medications Benzocaine/Menthol (Cepacol Sore Throat) 1 arlin MT Q2H PRN PRN Reason: Sore Throat Last Admin: 09/16/16 08:55 Dose: 1 arlin Diphenhydramine HCl (Benadryl) 25 mg IVP TID PRN PRN Reason: Itching / Pruritus Last Admin: 09/16/16 22:01 Dose: 25 mg Enoxaparin Sodium (Lovenox) 40 mg SC DAILY [facility] Last Admin: 09/18/16 09:29 Dose: 40 mg Hydralazine HCl (Apresoline) 10 mg IVP Q6H PRN PRN Reason: SBP> 160 Last Admin: 09/18/16 00:13 Dose: 10 mg Sodium Chloride (Sodium Chloride 0.9%) 1,000 mls @ 100 mls/hr IV .Q10H [facility] Last Admin: 09/18/16 12:10 Dose: 100 mls/hr Ketorolac Tromethamine (Toradol) 30 mg IVP Q6 [facility] Last Admin: 09/19/16 06:02 Dose: 30 mg Morphine Sulfate (Morphine) 4 mg IVP Q4 PRN PRN Reason: Pain, severe (8-10) Ondansetron HCl (Zofran Inj) 4 mg IVP Q6H PRN PRN Reason: Nausea/Vomiting Last Admin: 09/15/16 02:25 Dose: 4 mg Pantoprazole Sodium (Protonix Inj) 40 mg IVP ACB [facility] Last Admin: 09/18/16 08:03 Dose: 40 mg Simethicone (Mylicon Liq) 40 mg PO QID [facility] Last Admin: 09/18/16 21:48 Dose: 40 mg - Labs Labs: 09/18/16 07:07 09/18/16 07:07 PT 10.3 SECONDS (9.7-12.2) 09/13/16 05:06 INR 0.9 09/13/16 05:06 APTT 31 SECONDS (21-34) 09/13/16 05:06 - Constitutional Appears: Non-toxic, No Acute Distress - Respiratory Exam Respiratory Exam: absent: Accessory Muscle Use, Respiratory Distress - Cardiovascular Exam Cardiovascular Exam: REGULAR RHYTHM - GI/Abdominal Exam GI & Abdominal Exam: Soft, Tenderness (minimal). absent: Distended, Firm, Guarding Additional comments: incision c/d/i - Neurological Exam Neurological Exam: Alert, Awake, Oriented x3 - Psychiatric Exam Psychiatric exam: Normal Affect, Normal Mood - Skin Skin Exam: Normal Color, Warm Assessment and Plan - Assessment and Plan (Free Text) Assessment: 56F POD#4 s/p ex-lap with PASCUAL Plan: adv to regular diet pt clear for d/c if tolerates f/u in office in 1 week for staple removal d/w Dr Lizeth Olmedo, PGY2
[2016-09-19 07:26] LABS: GFR AFRICAN-AMERICAN > 60
[2016-09-19 07:27] LABS: ALB/GLOB RATIO 1.1 (1.0-2.1); AST/SGOT 17 U/L (14-36); BILIRUBIN,TOTAL 0.6 mg/dL (0.2-1.3); BLOOD UREA NITROGEN 3 mg/dL (7-17); CARBON DIOXIDE 23 mmol/L (22-30); GLUCOSE,RANDOM 103 mg/dL (65-105); TOTAL PROTEIN 5.3 g/dL (6.3-8.3)
[2016-09-19 07:49] LABS: ALKALINE PHOSPHATASE 55 U/L (38-126); ALT/SGPT 20 U/L (9-52)
[2016-09-19 07:50] LABS: CALCIUM 8.2 mg/dl (8.6-10.4)
[2016-09-19 09:02] LABS: EOSINOPHIL 1 % (0-4); NEUTROPHIL 73 % (50-75); TOTAL CELLS COUNTED 100
[2016-09-19 09:03] VITALS: RESP 18
[2016-09-19] MEDS: Enoxaparin 40 mg Syringe SC SCH (09:28)
--- NOTE | 2016-09-19 11:26 | CP.PCM.PN ---
Subjective - Date & Time of Evaluation Date of Evaluation: 09/19/16 Time of Evaluation: 11:00 - Subjective Subjective: clinically same Objective - Vital Signs/Intake and Output Vital Signs (last 24 hours): Temp Pulse Resp BP Pulse Ox 98.2 F 86 18 133/86 96 09/19/16 07:35 09/19/16 07:35 09/19/16 07:35 09/19/16 07:35 09/19/16 07:35 Intake and Output: 09/19/16 09/19/16 06:59 18:59 Intake Total 1870 Balance 1870 - Medications Medications: Current Medications Benzocaine/Menthol (Cepacol Sore Throat) 1 arlin MT Q2H PRN PRN Reason: Sore Throat Last Admin: 09/16/16 08:55 Dose: 1 arlin Diphenhydramine HCl (Benadryl) 25 mg IVP TID PRN PRN Reason: Itching / Pruritus Last Admin: 09/16/16 22:01 Dose: 25 mg Docusate Sodium (Colace) 100 mg PO BID [facility] Last Admin: 09/19/16 09:28 Dose: 100 mg Enoxaparin Sodium (Lovenox) 40 mg SC DAILY [facility] Last Admin: 09/19/16 09:28 Dose: 40 mg Hydralazine HCl (Apresoline) 10 mg IVP Q6H PRN PRN Reason: SBP> 160 Last Admin: 09/18/16 00:13 Dose: 10 mg Sodium Chloride (Sodium Chloride 0.9%) 1,000 mls @ 100 mls/hr IV .Q10H [facility] Last Admin: 09/18/16 12:10 Dose: 100 mls/hr Ketorolac Tromethamine (Toradol) 30 mg IVP Q6 [facility] Last Admin: 09/19/16 06:02 Dose: 30 mg Morphine Sulfate (Morphine) 4 mg IVP Q4 PRN PRN Reason: Pain, severe (8-10) Ondansetron HCl (Zofran Inj) 4 mg IVP Q6H PRN PRN Reason: Nausea/Vomiting Last Admin: 09/15/16 02:25 Dose: 4 mg Pantoprazole Sodium (Protonix Inj) 40 mg IVP ACB [facility] Last Admin: 09/19/16 09:28 Dose: 40 mg Potassium Chloride (K-Dur 20 Meq Er Tab) 40 meq PO STAT [facility] Stop: 09/19/16 11:17 Simethicone (Mylicon Liq) 40 mg PO QID [facility] Last Admin: 09/18/16 21:48 Dose: 40 mg - Labs Labs: 09/19/16 07:06 09/19/16 07:06 PT 10.3 SECONDS (9.7-12.2) 09/13/16 05:06 INR 0.9 09/13/16 05:06 APTT 31 SECONDS (21-34) 09/13/16 05:06 - Constitutional Appears: Well - Head Exam Head Exam: ATRAUMATIC, NORMAL INSPECTION, NORMOCEPHALIC - Eye Exam Eye Exam: EOMI, Normal appearance, PERRL Pupil Exam: NORMAL ACCOMODATION, PERRL - ENT Exam ENT Exam: Mucous Membranes Moist, Normal Exam - Neck Exam Neck Exam: Full ROM, Normal Inspection. absent: Lymphadenopathy - Respiratory Exam Respiratory Exam: Decreased Breath Sounds - Cardiovascular Exam Cardiovascular Exam: REGULAR RHYTHM, +S1, +S2 - GI/Abdominal Exam GI & Abdominal Exam: Soft, Diminished Bowel Sounds - Rectal Exam Rectal Exam: Deferred
[2016-09-19] MEDS ORDERED: Potassium Chloride 20 mEq ER Tab PO ONE (11:30)
--- NOTE | 2016-09-19 12:02 | CARD ---
APPROVED REPORT EKG Measurement Heart [id number] <Conclusion> Normal sinus rhythm Prolonged QT Abnormal ECG
[2016-09-19] MEDS: Simethicone 40 mg/0.6 ml Liquid (30 ml) PO SCH (14:21)
[2016-09-19 15:31] VITALS: BP 130/89; PULSE 89; TEMP 97.7; O2SAT 98
--- NOTE | 2016-09-19 15:53 | CP.PCM.PN ---
Subjective - Date & Time of Evaluation Date of Evaluation: 09/19/16 Time of Evaluation: 15:53 - Subjective Subjective: 56 Y/O FEMALE POD#4 S/P EX LAP WITH PASCUAL TOLERATED REGULAR DIET, + BS ALL 4 QUADRANT, + BM TODAY PT CLEARED FOR D/C PER DR VINSON AND SURGERY RX FOR PERCOCET 5/325 #20 BY SURGERY, AUGMENTIN AND COLACE PER DR VINSON F/U WITH SURGERY IN ONE WEEK FOR EARL REMOVAL Objective - Vital Signs/Intake and Output Vital Signs (last 24 hours): Temp Pulse Resp BP Pulse Ox 97.7 F 89 18 130/89 98 09/19/16 15:29 09/19/16 15:29 09/19/16 15:29 09/19/16 15:29 09/19/16 15:29 Intake and Output: 09/19/16 09/19/16 06:59 18:59 Intake Total 1870 Balance 1870 - Medications Medications: Current Medications Benzocaine/Menthol (Cepacol Sore Throat) 1 arlin MT Q2H PRN PRN Reason: Sore Throat Last Admin: 09/16/16 08:55 Dose: 1 arlin Diphenhydramine HCl (Benadryl) 25 mg IVP TID PRN PRN Reason: Itching / Pruritus Last Admin: 09/16/16 22:01 Dose: 25 mg Docusate Sodium (Colace) 100 mg PO BID [facility] Last Admin: 09/19/16 09:28 Dose: 100 mg Enoxaparin Sodium (Lovenox) 40 mg SC DAILY [facility] Last Admin: 09/19/16 09:28 Dose: 40 mg Hydralazine HCl (Apresoline) 10 mg IVP Q6H PRN PRN Reason: SBP> 160 Last Admin: 09/18/16 00:13 Dose: 10 mg Sodium Chloride (Sodium Chloride 0.9%) 1,000 mls @ 100 mls/hr IV .Q10H [facility] Last Admin: 09/18/16 12:10 Dose: 100 mls/hr Ketorolac Tromethamine (Toradol) 30 mg IVP Q6 [facility] Last Admin: 09/19/16 14:24 Dose: 30 mg Morphine Sulfate (Morphine) 4 mg IVP Q4 PRN PRN Reason: Pain, severe (8-10) Ondansetron HCl (Zofran Inj) 4 mg IVP Q6H PRN PRN Reason: Nausea/Vomiting Last Admin: 09/15/16 02:25 Dose: 4 mg Pantoprazole Sodium (Protonix Inj) 40 mg IVP ACB [facility] Last Admin: 09/19/16 09:28 Dose: 40 mg Simethicone (Mylicon Liq) 40 mg PO QID [facility] Last Admin: 09/19/16 14:21 Dose: Not Given - Labs Labs: 09/19/16 07:06 09/19/16 07:06 PT 10.3 SECONDS (9.7-12.2) 09/13/16 05:06 INR 0.9 09/13/16 05:06 APTT 31 SECONDS (21-34) 09/13/16 05:06
== END 2016-09-19 16:20 | disposition home or self-care (01) | DRG 337 ==
LOC: SUPCPDRO 04:25 → C.ER 04:25 → C.6T 05:47
PROVIDERS: ADMIT Internal Medicine Nephrology; ATTEND Internal Medicine Nephrology
PROC: 0DB98ZZ Excision of Duodenum, Via Natural or Artificial Opening Endoscopic (ICD-10-PCS; 2016-09-13)
PROC: 0DB38ZX Excision of Lower Esophagus, Via Natural or Artificial Opening Endoscopic, Diagnostic (ICD-10-PCS; 2016-09-13)
PROC: 0DB68ZX Excision of Stomach, Via Natural or Artificial Opening Endoscopic, Diagnostic (ICD-10-PCS; 2016-09-13)
PROC: 0DN80ZZ Release Small Intestine, Open Approach (ICD-10-PCS; principal; 2016-09-14)
PROC: 0DNW0ZZ Release Peritoneum, Open Approach (ICD-10-PCS; 2016-09-14)
DX: K56.5 Intestinal adhesions [bands] with obstruction (postinfection) (principal); K56.2 Volvulus; N73.6 Female pelvic peritoneal adhesions (postinfective); K29.50 Unspecified chronic gastritis without bleeding; K31.7 Polyp of stomach and duodenum; K57.30 Diverticulosis of large intestine without perforation or abscess without bleeding; K44.9 Diaphragmatic hernia without obstruction or gangrene; K76.0 Fatty (change of) liver, not elsewhere classified; I10 Essential (primary) hypertension; F17.210 Nicotine dependence, cigarettes, uncomplicated